=== PATIENT | female | born 1935 ===

== ENCOUNTER 2020-07-13 02:05 | Inpatient (IN) | payer MEDICARE, OTHER ==
[2020-07-13] MEDS ORDERED: cloNIDine 0.1 MG TAB PO PRN (05:41)
[2020-07-13] MEDS ORDERED: Ondansetron PF 4 MG/2 ML Vial IVP PRN (05:42)
[2020-07-13] MEDS ORDERED: Promethazine HCl 12.5 MG in Sodium Chloride 0.9% 50 ML IVPB PRN (05:42)
[2020-07-13] MEDS ORDERED: hydrALAZINE 20 MG/ML VIAL SLOW IVP PRN (05:42)
[2020-07-13] MEDS ORDERED: Labetalol HCl 100 MG/20 ML VIAL SLOW IVP PRN (05:42)
[2020-07-13] MEDS ORDERED: Morphine 2 MG/ML VIAL SLOW IVP PRN (05:42)
[2020-07-13] MEDS ORDERED: Guaifenesin DM 100-10/5 ML UDCUP PO PRN (05:42)
[2020-07-13] MEDS ORDERED: Electrolyte Replacement Protoc 1 EACH EACH FS SCH (05:45)
[2020-07-13] MEDS ORDERED: Sodium Chloride 0.9% 1,000 ML IV SCH (05:45)
[2020-07-13] MEDS ORDERED: Dextrose 50% Abboject 50 ML SYRINGE SLOW IVP PRN (05:47)
[2020-07-13] MEDS ORDERED: Dextrose 5% in Water 1,000 ML IV PRN (05:47)
--- NOTE | 2020-07-13 05:49 | PDOC.HHP ---
Hospitalist HPI - History of Present Illness GI bleed History of Present Illness: Patient is an 85 year old female with PMH CHF, atrial fibrillation, diabetes, pulmonary embolism on eliquis who presents as transfer from [facility] for GI bleed. [facility], staff saw blood in stool 2 days ago, hemoglobin checked and was 6.7, sent to ED for this at [place]. she has chronic lower abdominal pain but has some slightly worse than baseline pain last few days. had transfusion for anemia in previous hospitalization. She is on eliquis for atrial fibrillation, last dose probably 10 at nighttime. she was admitted however had about 8 bloody bowel movements, hemoglobin kept trending d own, patient recieved 4u pRBC and transferred here for further workup and care. Hospitalist ROS - Review of Systems Constitutional: reports: weakness, malaise. denies: fever, chills, sweats, other Eyes: denies: pain, vision change, conjunctivae inflammation, eyelid inflammation, redness, other ENT: denies: ear pain, ear discharge, nose pain, nose discharge, nose congestion, mouth pain, mouth swelling, throat pain, throat swelling, other Respiratory: denies: cough, dry, shortness of breath, hemoptysis, SOB with excertion, pleuritic pain, sputum, wheezing, other Cardiovascular: denies: chest pain, palpitations, orthopnea, paroxysmal noc. dyspnea, edema, light headedness, other Gastrointestinal: reports: abdominal pain, diarrhea, hematochezia. denies: nausea, vomiting, constipation, melena, other Genitourinary: denies: dysuria, frequency, incontinence, hematuria, retention, other Musculoskeletal: denies: neck pain, shoulder pain, arm pain, back pain, hand pain, leg pain, foot pain, other Skin: denies: rash, lesions, gay, bruising, other Neurological: denies: weakness, numbness, incoordination, change in speech, confusion, seizures, other All other systems reviewed; all pertinent +/- noted in HPI/Subj - Medication Medications: reviewed, see transfer documents for list Hospitalist History - Past Medical History Other Medical History: CHF, afib, dm, pe, on eliquis, anemia, arthritis, sick sinus syndrome, venous insufficiency, umbilical hernia - Past Surgical History Past Surgical History: reports: , Tonsillectomy - Family History Family History: reports: no pertinent history - Social History Alcohol: reports: None Drugs: reports: none - Exam General Appearance: NAD, awake alert Eye: PERRL, anicteric sclera ENT: normocephalic atraumatic, no oropharyngeal lesions, moist mucosa Neck: supple, symmetric, no JVD, no thyromegaly, no lymphadenopathy, no carotid bruit Heart: RRR, no murmur, no gallops, no rubs, normal peripheral pulses Respiratory: CTAB, no wheezes, no rales, no ronchi, normal chest expansion, no tachypnea, normal percussion Gastrointestinal: soft, non-tender, non-distended, normal bowel sounds, no palpable masses, no hepatomegaly, no splenomegaly, no bruit Extremities: no cyanosis, no clubbing, no edema Skin: normal turgor, no lesions, no rashes Neurological: cranial nerve grossly intact, normal sensation to touch, no weakness, no focal deficits, no new deficit Musculoskeletal: normal tone, normal strength, no muscle wasting Psychiatric: normal affect, normal behavior, A&O x 3 Hospitalist Results - Labs Additional comment: 25 pages transfer documents reviewed including labs, imaging, notes. see HPI for pertinent positives. Hospitalist H&P A/P - Plan Plan: Patient is an 85 year old female with PMH CHF, atrial fibrillation, diabetes, pulmonary embolism on eliquis who presents as transfer from [facility] for GI bleed. # acute GI bleed # history of PE on eliquis # atrial fibrillation She lives at a [facility], staff saw blood in stool 2 days ago, hemoglobin checked and was 6.7, sent to ED for this at [place]. she has chronic lower abdominal pain but has some slightly worse than baseline pain last few days. had transfusion for anemia in previous hospitalization. She is on eliquis for atrial fibrillation, last dose probably 10/5 at nighttime. she was admitted however had about 8 bloody bowel movements, hemoglobin kept trending down, patient recieved 4u pRBC and transferred here for further workup and care. - admit to telemetry - send labs now, CBC CMP coags, type and screen - had 2 more bloody BMs now may need more blood - consult GI - IVF - clear liquid diet - resume home meds once med rec complete # DM - SSI DVT ppx - SCD GI ppx - protonix
[2020-07-13] MEDS ORDERED: Potassium Chloride 40 MEQ in Premix Bag 1 BAG IVPB SCH (06:15)
[2020-07-13 06:17] LABS: #Basophils 0.1 thou/uL (0.0-0.2); #Eosinphils 0.1 thou/uL (0.0-0.7); #Lymphocytes 0.5 thou/uL (1.20-3.40); #Monocytes 0.7 thou/uL (0.11-0.59); #Neutrophils 5.5 thou/uL (1.40-6.50); %Basophils 1.3 % (0.0-1.0); %Eosinophils 1.8 % (0.0-10.0); %Lymphocytes 7.4 % (21.0-51.0); %Monocytes 10.1 % (0.0-10.0); %Neutrophils 79.4 % (42.0-75.0); Hemoglobin 6.4 g/dL (12.0-16.0); Mean Corpuscular HGB CONC 31.6 g/dL (32.0-36.0); Mean Corpuscular Hemoglobin 28.6 pg (27.0-31.0); Mean Corpuscular Volume 90.3 fL (78.0-98.0); Mean Platelet Volume 9.6 fL (7.4-10.4); Platelet Count 140 thou/uL (130-400); RBC Distribution Width 15.8 % (11.5-14.5); Red Blood Cell (RBC) Count 2.23 mill/uL (4.20-5.40); White Blood Cell (WBC) Count 6.9 thou/uL (4.8-10.8)
[2020-07-13 06:23] LABS: INR-International Normal Ratio 1.4; PTT 42.3 sec (22.9-36.1); Prothrombin Time 17.5 sec (12.0-14.7)
[2020-07-13] MEDS ORDERED: Sodium Chloride 0.9% (PF) 10 ML VIAL FS PRN (06:30)
[2020-07-13 06:37] LABS: ALT (SGPT) Less than 7 U/L (8-55); AST (SGOT) 13 U/L (5-34); Albumin 2.5 g/dL (3.4-4.8); Alkaline Phosphatase 71 U/L (40-110); Bilirubin, Direct 0.2 mg/dL (0.1-0.3); Bilirubin, Total 0.5 mg/dL (0.2-1.2); Magnesium 1.5 mg/dL (1.6-2.6); Protein, Total 4.3 g/dL (6.0-8.3)
[2020-07-13 06:41] LABS: Troponin I 0.025 ng/mL (< 0.028)
[2020-07-13] MEDS ORDERED: Magnesium 2 GM/50 ML 2 GM in Premix Bag 1 BAG IVPB SCH (07:00)
[2020-07-13] MEDS: Pantoprazole 40 MG VIAL IVP SCH ×2 (09:41→21:38)
--- NOTE | 2020-07-13 10:50 | PDOC.EVN ---
Event Note - Event Note Event Note: Patient seen and examined. Had another large bright red bloody bowel movement this AM. Vitals stable and no tachycardia. Hgb still less than 7 even after transfusions at outside hospital. Currently transfusing 2 units PRBC. Will recheck H/H after that. GI consulted.
[2020-07-13 17:07] LABS: #Basophils 0.1 thou/uL (0.0-0.2); #Eosinphils 0.1 thou/uL (0.0-0.7); #Lymphocytes 0.5 thou/uL (1.20-3.40); #Monocytes 0.8 thou/uL (0.11-0.59); #Neutrophils 5.7 thou/uL (1.40-6.50); %Basophils 1.7 % (0.0-1.0); %Eosinophils 1.4 % (0.0-10.0); %Lymphocytes 6.8 % (21.0-51.0); %Monocytes 10.4 % (0.0-10.0); %Neutrophils 79.7 % (42.0-75.0); Hemoglobin 7.5 g/dL (12.0-16.0); Mean Corpuscular HGB CONC 33.1 g/dL (32.0-36.0); Mean Corpuscular Hemoglobin 29.7 pg (27.0-31.0); Mean Corpuscular Volume 89.8 fL (78.0-98.0); Mean Platelet Volume 8.8 fL (7.4-10.4); Platelet Count 139 thou/uL (130-400); RBC Distribution Width 15.3 % (11.5-14.5); Red Blood Cell (RBC) Count 2.52 mill/uL (4.20-5.40); White Blood Cell (WBC) Count 7.2 thou/uL (4.8-10.8)
[2020-07-13] MEDS ORDERED: Ketamine 50 MG/ML (10ML VIAL) ONE (17:46)
[2020-07-13] MEDS ORDERED: Promethazine HCl 25 MG/ML VIAL SLOW IVP PRN (18:24)
[2020-07-13] MEDS ORDERED: Promethazine HCl 25 MG/ML VIAL IM PRN (18:24)
[2020-07-13] MEDS ORDERED: Ondansetron HCl/PF 4 MG/2 ML Vial IVP PRN (18:24)
[2020-07-13] MEDS ORDERED: GoLYTELY 4,000 ml Bottle PO SCH (18:45)
[2020-07-13] MEDS ORDERED: FLU VACC QS2020-21(65YR UP)/PF 240 MCG/0.7 ML SYRINGE IM ONE (21:00)
--- NOTE | 2020-07-14 00:03 | OP ---
DATE OF PROCEDURE: 07/13/2020 PROCEDURE PERFORMED: Esophagogastroduodenoscopy. PREOPERATIVE DIAGNOSES: Gastrointestinal bleed and anemia of acute blood loss. DESCRIPTION OF PROCEDURE: Informed consent was obtained from the patient. She was sedated with total intravenous anesthesia. The bite block was placed, and the endoscope was advanced easily to the second portion of the duodenum, and retroflexion was performed in the stomach. The esophagus was normal. The GE junction was normal. The stomach was normal including retroflexed views. The pylorus and first and second portions of the duodenum were normal. Air was suctioned from the stomach, and the procedure was completed. IMPRESSION: 1. Normal esophagogastroduodenoscopy. 2. Colonoscopy tomorrow. Job ID: [id number]
[2020-07-14 06:33] LABS: Anion Gap 10 mmol/L (10-20); BUN (Urea Nitrogen) 23 mg/dL (9.8-20.1); Calc. Creatinine Clearance 97 mL/min (70-130); Calcium 8.6 mg/dL (7.8-10.44); Carbon Dioxide 33 mmol/L (23-31); Chloride 104 mmol/L (98-107); Estimated GFR-MDRD Greater than 90; Glucose 147 mg/dL (83-110); Magnesium 1.7 mg/dL (1.6-2.6); Potassium 3.9 mmol/L (3.5-5.1); Sodium 143 mmol/L (136-145)
[2020-07-14 06:41] LABS: #Basophils 0.1 thou/uL (0.0-0.2); #Eosinphils 0.1 thou/uL (0.0-0.7); #Lymphocytes 0.6 thou/uL (1.20-3.40); #Neutrophils 6.5 thou/uL (1.40-6.50); %Basophils 0.8 % (0.0-1.0); %Eosinophils 1.5 % (0.0-10.0); %Lymphocytes 6.9 % (21.0-51.0); %Monocytes 12.2 % (0.0-10.0); %Neutrophils 78.6 % (42.0-75.0); Hemoglobin 7.5 g/dL (12.0-16.0); Mean Corpuscular HGB CONC 31.9 g/dL (32.0-36.0); Mean Corpuscular Hemoglobin 29.4 pg (27.0-31.0); Mean Corpuscular Volume 91.9 fL (78.0-98.0); Mean Platelet Volume 8.7 fL (7.4-10.4); Platelet Count 153 thou/uL (130-400); RBC Distribution Width 15.5 % (11.5-14.5); Red Blood Cell (RBC) Count 2.56 mill/uL (4.20-5.40); White Blood Cell (WBC) Count 8.3 thou/uL (4.8-10.8)
[2020-07-14] MEDS: Pantoprazole 40 MG VIAL IVP SCH (08:22)
--- NOTE | 2020-07-14 09:51 | CON ---
DATE OF CONSULTATION: 07/13/2020 CHIEF COMPLAINT: Blood in the stool. HISTORY OF PRESENT ILLNESS: Ms. Munson is an 85-year-old woman who was transferred from a [facility] to an outside hospital, [facility], for red blood in her stool. She first saw red blood in the stool a couple of days ago and she had hemoglobin checked which was 6.7. She was sent to the local ER to evaluate that. She apparently was admitted there and given blood transfusion, apparently 4 units of red blood cells, and then was transferred here to [place] for further management. She has had no abdominal pain with that. No nausea or vomiting. No fever or chills. She has not had a prior GI bleed. She has had upper endoscopy in the past, but does not know the results. She had a colonoscopy years ago which she also reports unknown results, but that was over 10 years ago. She has been on Eliquis due to a history of atrial fibrillation and pulmonary embolism. Her last dose of Eliquis appears to have been a couple of days ago. PAST MEDICAL HISTORY: CHF, atrial fibrillation, diabetes mellitus, pulmonary embolism, anemia, venous insufficiency, umbilical hernia. She reports heart murmur due to rheumatic fever as a child. PAST SURGICAL HISTORY: , tonsillectomy. FAMILY HISTORY: Negative for GI malignancy. SOCIAL HISTORY: No alcohol, tobacco, or drugs. ALLERGIES: PENICILLIN, MEPERIDINE, CLONIDINE, ALBUTEROL. REVIEW OF SYSTEMS: Negative x10 systems reviewed except as stated in History of Present Illness. PHYSICAL EXAMINATION: VITAL SIGNS: Temperature is 98.3, pulse is 86, blood pressure 116/53. GENERAL: She is in no acute distress. She is awake and alert. She is quite pale. HEENT: Her oropharynx is clear without lesions. NECK: No cervical or supraclavicular lymphadenopathy. LUNGS: Clear to auscultation bilaterally. HEART: Regular rate and rhythm without murmur. ABDOMEN: Soft. Mild diffuse tenderness without guarding. Bowel sounds are present. EXTREMITIES: 2+ lower extremity edema. RECTAL: Reveals dark red blood in the rectal vault. NEUROLOGIC: Cranial nerves are grossly intact. LABORATORY DATA: White blood cell count 6.9; hemoglobin this morning at 6 was 6.4, repeat at 1300 today showed a hematocrit of 20.6, which is unchanged from this morning. She is receiving blood transfusion still. She has 2 units written to transfuse at this facility. INR 1.4. Bilirubin 0.5, AST 13, ALT 7, alkaline phosphatase 71, albumin 2.5. IMPRESSION: Acute gastrointestinal bleed, having been on Eliquis. Her last dose she believes was 2 days ago, but could have been as recent as yesterday morning. She continues to pass dark red blood and her hemoglobin remained 6.4 apparently after 4 units transfusion. She has received 2 more units here at the hospital. We will need to rule out more rapid upper gastrointestinal bleed and we will perform upper endoscopy today. If this is negative, then we can follow through with a colonoscopy tomorrow versus bleeding scan. I would favor that this is more likely a diverticular bleed. RECOMMENDATIONS: 1. Transfusion. 2. EGD today. 3. Proton pump inhibitor IV. 4. If endoscopy is negative, then follow through with a bleeding scan this evening and likely bowel prep for colonoscopy tomorrow. Job ID: [id number]
[2020-07-14] MEDS ORDERED: Magnesium 2 GM/50 ML 2 GM in Premix Bag 1 BAG IVPB SCH (10:45)
--- NOTE | 2020-07-14 15:57 | PDOC.HOSPP ---
- Subjective Encounter Date: 07/14/20 Encounter Time: 10:15 Subjective: Patient up in bed complains of some mild lower abdominal cramping. - Objective Vital Signs & Weight: Vital Signs (12 hours) Temp Pulse Resp BP Pulse Ox 07/14/20 13:58 97.7 F 88 18 128/80 100 07/14/20 08:00 97.9 F 92 18 131/75 100 Weight Admit Weight 203 lb 12.8 oz Weight 203 lb 12.8 oz I&O: 07/13/20 07/14/20 07/15/20 06:59 06:59 06:59 Intake Total 2870 Balance 2870 Result Diagrams: 07/14/20 05:55 07/14/20 05:55 Additional Labs: Accuchecks 07/14/20 07/14/20 07/13/20 11:01 05:55 20:48 POC Glucose 148 H 125 H 155 H 07/13/20 17:19 POC Glucose 147 H Hospitalist ROS - Review of Systems Cardiovascular: denies: chest pain, palpitations, orthopnea, paroxysmal noc. dyspnea, edema, light headedness, other Gastrointestinal: reports: abdominal pain. denies: nausea, vomiting, diarrhea, constipation, melena, hematochezia, other Genitourinary: denies: dysuria, frequency, incontinence, hematuria, retention, other - Medication Medications: Active Medications Generic Name Dose Route Start Last Admin Trade Name Freq PRN Reason Stop Dose Admin Pantoprazole Sodium 40 mg 07/13/20 09:00 07/14/20 08:22 Pantoprazole 40 Mg Vial IVP 40 mg Q12HR RANDI Administration - Exam Neck: negative: supple, symmetric, no JVD, no thyromegaly, no lymphadenopathy, no carotid bruit, JVD Heart: negative: RRR, no murmur, no gallops, no rubs, normal peripheral pulses, irregular, diminshed peripheral pulses, murmur present, II/IV, III/IV Respiratory: negative: CTAB, no wheezes, no rales, no ronchi, normal chest expansion, no tachypnea, normal percussion, rales, rhonchi, tachypneic, wheezes Gastrointestinal: soft, normal bowel sounds Gastrointestinal - other findings: Mild pain upon palpation to lower abdominal area Hosp A/P (1) Bright red blood per rectum Code(s): K62.5 - HEMORRHAGE OF ANUS AND RECTUM Status: Acute (2) Pulmonary embolism Code(s): I26.99 - OTHER PULMONARY EMBOLISM WITHOUT ACUTE COR PULMONALE Status: Chronic Qualifiers: Chronicity: chronic (3) Atrial fibrillation Code(s): I48.91 - UNSPECIFIED ATRIAL FIBRILLATION Status: Chronic Qualifiers: Atrial fibrillation type: unspecified chronic Qualified Code(s): I48.20 - Chronic atrial fibrillation, unspecified; I48.2 - Chronic atrial fibrillation (4) Diabetes Code(s): E11.9 - TYPE 2 DIABETES MELLITUS WITHOUT COMPLICATIONS Status: Acute - Plan We will continue to monitor H&H. EGD normal will go for colonoscopy in a.m. Patient's not had any more bright blood per rectum. Will hold Eliquis. She states that her PE DVT was a few years ago.
[2020-07-14] MEDS ORDERED: GoLYTELY 4,000 ml Bottle PO SCH (19:00)
--- NOTE | 2020-07-14 19:47 | PRG ---
DATE OF SERVICE: 07/14/2020 REASON FOR CONSULTATION: Hematochezia. SUBJECTIVE: The patient experienced significant difficulty overnight in drinking the GoLYTELY prep in preparation for the colonoscopy today. As of 8 o'clock this morning, she was only able to drink approximately 1/2 to 2/3 of the GoLYTELY prep with no clearing of her stools at that time. Over the course of the day today, the patient was ultimately able to drink all 4000 mL of the GoLYTELY, but at the end of it, continued to have stools that were not clear. As such, the patient was deferred for possible colonoscopy tomorrow. At the time of the interview with the patient, she was tearful about not being able to complete the GoLYTELY prep in time today and had significant apprehension about being able to continue the GoLYTELY prep tonight in preparation for colonoscopy tomorrow. However, during the course of drinking the GoLYTELY prep both last night and today, she has had no further episodes of hematochezia. Currently, she denies any nausea, vomiting, fevers, chills, abdominal pain, hematemesis, melena, or hematochezia. OBJECTIVE: VITAL SIGNS: Temperature 97.7, pulse 88, blood pressure 128/80, respiratory rate 18, and saturating 100% on 2 L nasal cannula. GENERAL: The patient was lying in bed, in no acute distress. Alert and oriented x3. CARDIOVASCULAR: Regular rate and rhythm. RESPIRATORY: Clear to auscultation bilaterally. ABDOMEN: Normoactive bowel sounds. Soft, nontender, and nondistended. EXTREMITIES: 1+/2+ bilateral lower extremity edema. LABORATORY DATA: CBC with a white blood cell count of 8.3, hemoglobin 7.5, hematocrit 23.6, and platelets 153. Chemistry with sodium of 143, potassium 3.9, chloride 104, CO2 of 33, BUN 23, creatinine 0.61, glucose 147. IMAGING DATA: No current GI imaging is available for review. ASSESSMENT AND PLAN: The patient is an 85-year-old female with past medical history of congestive heart failure, atrial fibrillation, on anticoagulation, diabetes, pulmonary embolism, anemia, venous insufficiency, insufficiency, and umbilical hernia, presenting with hematochezia and significant anemia secondary to her acute blood loss. Hematochezia: The patient initially was seen at [facility] for hematochezia, for which the patient had initial labs showing a significant anemia, for which she was transferred to [facility] for further evaluation. Per chart review, the patient apparently had 4 units of packed red blood cells and ultimately transferred here. Since being admitted to this hospital, she has not had any further episodes of hematochezia. She did undergo upper endoscopy yesterday with relatively normal findings. She was slated to undergo colonoscopy on July 14, 2020, but was unable to adequately tolerate the GoLYTELY prep with inadequate preparation today. RECOMMENDATIONS: 1. We will place the patient on a clear liquid diet for the remainder of today and repeat the GoLYTELY prep tonight. The patient may not need the entire GoLYTELY prep if her stools are running clear. 2. Would make the patient n.p.o. at midnight in preparation for colonoscopy tomorrow. 3. Would plan for colonoscopy in the morning for further evaluation of her hematochezia. 4. We will continue to trend her H and H and transfuse as necessary to maintain an H and H of 7/21. 5. Continue to monitor clinically for signs of active GI bleeding. We will continue to follow. Please call with any questions. Job ID: [id number]
[2020-07-15] MEDS: Pantoprazole 40 MG VIAL IVP SCH ×3 (00:27→22:18)
[2020-07-15 04:48] LABS: Anion Gap 11 mmol/L (10-20); BUN (Urea Nitrogen) 16 mg/dL (9.8-20.1); Calc. Creatinine Clearance 98 mL/min (70-130); Calcium 8.3 mg/dL (7.8-10.44); Carbon Dioxide 34 mmol/L (23-31); Chloride 102 mmol/L (98-107); Estimated GFR-MDRD Greater than 90; Glucose 144 mg/dL (83-110); Magnesium 1.6 mg/dL (1.6-2.6); Potassium 3.1 mmol/L (3.5-5.1); Sodium 144 mmol/L (136-145)
[2020-07-15 05:11] LABS: Band 3 % (5-11); Eosinophils 5 % (0-10); Hemoglobin 7.1 g/dL (12.0-16.0); Lymphocytes 7 % (21-51); MDiff Complete? YES; Mean Corpuscular HGB CONC 33.4 g/dL (32.0-36.0); Mean Corpuscular Hemoglobin 30.7 pg (27.0-31.0); Mean Corpuscular Volume 91.9 fL (78.0-98.0); Monocytes 15 % (0-10); Neutrophil 70 % (42-75); Platelet Count 170 thou/uL (130-400); RBC Distribution Width 15.8 % (11.5-14.5); Red Blood Cell (RBC) Count 2.32 mill/uL (4.20-5.40); White Blood Cell (WBC) Count 6.5 thou/uL (4.8-10.8)
[2020-07-15] MEDS ORDERED: Magnesium 2 GM/50 ML 2 GM in Premix Bag 1 BAG IVPB SCH (06:45)
[2020-07-15] MEDS: Potassium Chloride 20 MEQ in Premix Bag 1 BAG IVPB SCH ×2 (09:46→15:23)
[2020-07-15] MEDS ORDERED: Lidocaine 1% PF 5 ML VIAL ONE (10:16)
[2020-07-15] MEDS ORDERED: PROPOFOL 200 MG/20 ML VIAL ONE (10:16)
[2020-07-15] MEDS ORDERED: Ketamine 50 MG/ML (10ML VIAL) ONE (11:03)
[2020-07-15] MEDS ORDERED: Potassium Chloride 20 MEQ in Premix Bag 1 BAG IVPB SCH (15:15)
[2020-07-15 16:18] LABS: #Eosinphils 0.2 thou/uL (0.0-0.7); #Lymphocytes 0.5 thou/uL (1.20-3.40); #Monocytes 0.7 thou/uL (0.11-0.59); #Neutrophils 4.5 thou/uL (1.40-6.50); %Basophils 0.6 % (0.0-1.0); %Eosinophils 2.8 % (0.0-10.0); %Lymphocytes 8.1 % (21.0-51.0); %Monocytes 11.3 % (0.0-10.0); %Neutrophils 77.3 % (42.0-75.0); Hemoglobin 7.3 g/dL (12.0-16.0); Mean Corpuscular HGB CONC 31.8 g/dL (32.0-36.0); Mean Corpuscular Hemoglobin 29.7 pg (27.0-31.0); Mean Corpuscular Volume 93.4 fL (78.0-98.0); Mean Platelet Volume 8.5 fL (7.4-10.4); Platelet Count 169 thou/uL (130-400); RBC Distribution Width 16.2 % (11.5-14.5); Red Blood Cell (RBC) Count 2.46 mill/uL (4.20-5.40); White Blood Cell (WBC) Count 5.8 thou/uL (4.8-10.8)
--- NOTE | 2020-07-15 17:10 | CT ---
CT CHEST AND ABDOMEN AND PELVIS PERFORMED WITH INTRAVENOUS CONTRAST ENHANCEMENT: 07/15/20 HISTORY: Large mass found in ascending colon, metastatic workup. There are small bilateral pleural effusions with bibasilar atelectatic lung change. In addition, ther e is ground glass opacities in right upper and lower lung zones. No definitive left upper or lower lo be ground glass change. There is no significant mediastinal or hilar adenopathy. No significant axillary lymphadenopathy. Ple ural based calcification is seen in the left lung. CT OF ABDOMEN PERFORMED WITH CONTRAST ENHANCEMENT: The liver, spleen, pancreas and gallbladder regions all appear unremarkable. Right and left adrenal glands are normal. Cortical thinning of both kidneys. No mass or obstruction. Retroaortic left renal vein is noted. No significant periaortic or mesenteric adenopathy is appreciat ed. Difficult to definitely visualize the ascending colon mass. The colon is not well distended and t here is what appears to be some wall thickening in this region. CT OF PELVIS PERFORMED WITH CONTRAST ENHANCEMENT: There is suggestion of wall thickening to the rectosigmoid region. Some minimal presacral fat strandi ng is seen. No pelvic lymphadenopathy. There is a left lateral hernia present involving the abdominal wall. Herniation of bowel without obstruction. Review of osseous structures shows severe bony demineralization. No definitive focal lytic bone bryant e. Some of the areas of lucency are felt just to be on the basis of osteoporosis. IMPRESSION: 1. Some ground glass opacities in the right upper and lower lung zones. This could possibly be o n the basis of aspiration, possibly of a COVID pneumonia is not excluded. 2. Small bilateral pleural effusions with bibasilar atelectatic lung change. 3. No evidence for any liver metastatic disease. There is sigmoid diverticulosis distal to the s igmoid diverticular change. There appears to be some wall thickening to the colon. Difficult to asses s due to the underdistention. Clinical correlation is recommended as to any findings that would sugge st a colitis or any mass noted in this region. There is some minimal presacral fat stranding seen. 4. Left lateral wall abdominal hernia. POS: [facility] [place]
--- NOTE | 2020-07-15 18:52 | PDOC.HOSPP ---
- Subjective Encounter Date: 07/15/20 Encounter Time: 10:15 Subjective: Patient up in bed denies any complaints. - Objective Vital Signs & Weight: Vital Signs (12 hours) Temp Pulse Resp BP Pulse Ox 07/15/20 15:20 97.8 F 94 17 133/54 L 100 07/15/20 11:30 97.6 F 61 17 117/51 L 100 07/15/20 07:45 97.9 F 70 17 153/70 H 100 Weight Admit Weight 203 lb 12.8 oz Weight 203 lb 12.8 oz I&O: 07/14/20 07/15/20 07/16/20 06:59 06:59 06:59 Intake Total 2870 4480 1400 Balance 2870 4480 1400 Result Diagrams: 07/15/20 15:52 07/15/20 04:15 Additional Labs: Accuchecks 07/15/20 07/15/20 07/15/20 17:02 10:29 05:10 POC Glucose 195 H 152 H 129 H 07/14/20 20:52 POC Glucose 225 H Hospitalist ROS - Review of Systems Cardiovascular: denies: chest pain, palpitations, orthopnea, paroxysmal noc. dyspnea, edema, light headedness, other Gastrointestinal: denies: nausea, vomiting, abdominal pain, diarrhea, consti pation, melena, hematochezia, other Genitourinary: denies: dysuria, frequency, incontinence, hematuria, retention, other - Medication Medications: Active Medications Generic Name Dose Route Start Last Admin Trade Name Freq PRN Reason Stop Dose Admin Pantoprazole Sodium 40 mg 07/13/20 09:00 07/15/20 09:46 Pantoprazole 40 Mg Vial IVP 40 mg Q12HR RANDI Administration - Exam Neck: negative: supple, symmetric, no JVD, no thyromegaly, no lymphadenopathy, no carotid bruit, JVD Heart: negative: RRR, no murmur, no gallops, no rubs, normal peripheral pulses, irregular, diminshed peripheral pulses, murmur present, II/IV, III/IV Respiratory: negative: CTAB, no wheezes, no rales, no ronchi, normal chest expansion, no tachypnea, normal percussion, rales, rhonchi, tachypneic, wheezes Gastrointestinal: negative: soft, non-tender, non-distended, normal bowel sounds, no palpable masses, no hepatomegaly, no splenomegaly, no bruit, no guarding, no rigidity, tender to palpation, distended, diminished bowl sounds, voluntary guarding Hosp A/P (1) Bright red blood per rectum Code(s): K62.5 - HEMORRHAGE OF ANUS AND RECTUM Status: Acute (2) Pulmonary embolism Code(s): I26.99 - OTHER PULMONARY EMBOLISM WITHOUT ACUTE COR PULMONALE Status: Chronic Qualifiers: Chronicity: chronic (3) Atrial fibrillation Code(s): I48.91 - UNSPECIFIED ATRIAL FIBRILLATION Status: Chronic Qualifiers: Atrial fibrillation type: unspecified chronic Qualified Code(s): I48.20 - Chronic atrial fibrillation, unspecified; I48.2 - Chronic atrial fibrillation (4) Diabetes Code(s): E11.9 - TYPE 2 DIABETES MELLITUS WITHOUT COMPLICATIONS Status: Acute - Plan We will continue to monitor H&H. EGD normal will go for colonoscopy in a.m. Patient's not had any more bright blood per rectum. Will hold Eliquis. She states that her PE DVT was a few years ago. 07/15 continue to hold Eliquis. H&H low stable. Will start patient on clear liquid diet. Covid test pending. Patient underwent a CT chest abdomen pelvis to rule out any metastatic lesions. Patient's official colonoscopy report is not up however the nurse was told possible mass.
--- NOTE | 2020-07-15 19:09 | OP ---
DATE OF PROCEDURE: 07/15/2020 PROCEDURES PERFORMED: 1. Colonoscopy with biopsy. 2. Submucosal injection. 3. Polypectomy. 4. Control of hemorrhage. INDICATIONS FOR PROCEDURE: Hematochezia, anemia. DESCRIPTION OF PROCEDURE: After the risks and benefits of the procedure were explained to the patient including risks of bleeding, infection, perforation, reactions to anesthesia, aspiration, and/or pain, informed consent was obtained. The patient was then taken to the endoscopy suite where she was maneuvered into the left lateral decubitus position followed by introduction of deep sedation via propofol and anesthesia support. Once adequate sedation was achieved, a digital rectal examination was performed followed by introduction of the standard colonoscope, which was then advanced to the terminal ileum with moderate difficulty due to tortuosity of the colon and significant looping of the scope. The quality of the prep was fair to good with adequate visualization of the colonic mucosa achieved. The patient tolerated the procedure well with no immediate perioperative complications. Upon conclusion of the procedure, all equipment was then removed from the patient and she was transferred to PACU in satisfactory condition. FINDINGS: Digital rectal exam: Medium to large external hemorrhoids as well as perianal skin tags were seen on digital rectal examination. No masses palpated. Colon findings: Normal-appearing mucosa was seen within the terminal ileum as well as at the ileocecal valve and appendiceal orifice. A 5- to 6-mm erythematous polyp was seen in the cecum and completely removed with snare cautery polypectomy. It was retrieved and placed in a specimen jar for further evaluation. However, in the mid-ascending colon, there was a 3- to 4-cm sessile mass along one wall of the colon and involving multiple folds, but only occupying approximately 10% to 20% of the colonic lumen. The mass itself did show some increased friability, some mild oozing of blood, and some small ulcerations, but no evidence of significant active or recent bleeding. Given the size of this polyp, multiple biopsies were taken and placed in a specimen jar for further evaluation. Submucosal injection with spot ink ( ink) was placed both proximal and distal to the mass itself for further reference. Normal-appearing mucosa was then seen at the hepatic flexure, transverse colon, and proximal descending colon. Multiple small and large diverticula were seen in the distal descending and sigmoid colons. Careful examination of each of these diverticula did not reveal any evidence of erythema, purulence, or active/recent bleeding. A 1.5- to 2-cm sessile polyp was also seen in the sigmoid colon and removed in a piecemeal fashion with snare cautery polypectomy with a larger mucosal defect. Hemoclip x2 were then employed with good approximation of the mucosal defect and good hemostasis achieved. Otherwise, normal-appearing mucosa was seen in the rectum with small internal hemorrhoids seen on rectal retroflexion. IMPRESSION: 1. A 5- to 6-mm cecal polyp status post snare cautery polypectomy. 2. A 3- to 4-cm sessile mass seen in the mid-ascending colon status post biopsy and tattoo placement. 3. Moderate left-sided diverticulosis without evidence of recent bleeding. 4. A 1.5- to 2-cm sessile polyp in the sigmoid colon, status post piecemeal resection with snare cautery polypectomy and hemoclip placement x2. 5. Small internal and moderate-sized external hemorrhoids that were nonbleeding. RECOMMENDATIONS: 1. Would continue to trend her hemoglobin and hematocrit and transfuse as necessary to maintain the hemoglobin and hematocrit of 7/21. 2. Continue to monitor clinically for signs of active GI bleeding. 3. Would follow up on the biopsy and polypectomy results to help guide further care. We would recommend a repeat colonoscopy in 6 to 12 months given the piecemeal resection of the sigmoid colon polyp. 4. Would consult General Surgery Service for evaluation of the patient and possible surgical resection of the ascending colon polyp. However, given the nonobstructive nature of this lesion, this could be potentially performed as an outpatient, although it is one the more likely source of upper GI bleed. 5. Would continue to avoid any anticoagulation on the patient for the next 48 to 72 hours, then restart if clinically appropriate. 6. Would start the patient on a full liquid diet and advance as tolerated. 7. Would obtain a CT scan of the chest, abdomen, and pelvis for evaluation of possible metastatic disease given the size of the ascending colon polyp and possibility of malignancy. We will continue to follow. Please call with any questions. Job ID: [id number]
[2020-07-16 06:47] LABS: Anion Gap 12 mmol/L (10-20); BUN (Urea Nitrogen) 9 mg/dL (9.8-20.1); Calc. Creatinine Clearance 98 mL/min (70-130); Calcium 8.4 mg/dL (7.8-10.44); Carbon Dioxide 30 mmol/L (23-31); Chloride 101 mmol/L (98-107); Estimated GFR-MDRD Greater than 90; Glucose 157 mg/dL (83-110); Magnesium 1.6 mg/dL (1.6-2.6); Potassium 3.1 mmol/L (3.5-5.1); Sodium 140 mmol/L (136-145)
[2020-07-16 07:03] LABS: #Eosinphils 0.2 thou/uL (0.0-0.7); #Lymphocytes 0.4 thou/uL (1.20-3.40); #Monocytes 0.8 thou/uL (0.11-0.59); #Neutrophils 7.7 thou/uL (1.40-6.50); %Eosinophils 1.8 % (0.0-10.0); %Lymphocytes 4.6 % (21.0-51.0); %Neutrophils 84.6 % (42.0-75.0); Hemoglobin 6.9 g/dL (12.0-16.0); Mean Corpuscular HGB CONC 32.6 g/dL (32.0-36.0); Mean Corpuscular Hemoglobin 30.5 pg (27.0-31.0); Mean Corpuscular Volume 93.6 fL (78.0-98.0); Mean Platelet Volume 8.7 fL (7.4-10.4); Platelet Count 171 thou/uL (130-400); RBC Distribution Width 16.6 % (11.5-14.5); Red Blood Cell (RBC) Count 2.25 mill/uL (4.20-5.40); White Blood Cell (WBC) Count 9.1 thou/uL (4.8-10.8)
[2020-07-16] MEDS: Pantoprazole 40 MG VIAL IVP SCH ×2 (08:43→21:21)
[2020-07-16] MEDS ORDERED: Magnesium 2 GM/50 ML 2 GM in Premix Bag 1 BAG IVPB SCH (09:30)
[2020-07-16] MEDS ORDERED: Potassium Chloride 20 MEQ TAB PO SCH (09:45)
[2020-07-16] MEDS: HumaLOG 300 UNITS/3 ML VIAL SC PRN ×2 (11:02→17:35)
--- NOTE | 2020-07-16 12:12 | PRG ---
DATE OF SERVICE: 07/16/2020 REASON FOR CONSULTATION: Hematochezia. SUBJECTIVE: The patient underwent colonoscopy yesterday with multiple polyps seen throughout the colon with two polyps removed, one from the cecum and the other from the sigmoid colon. However, a large flat polypoid mass was seen in the mid ascending colon with mild friability associated with it, but did not exhibit a fungating type appearance for possible colon cancer, but may rather be a large colonic polyp. In the postoperative period, the patient has not had any bowel movements, bloody or otherwise. She states that she is doing well today with no acute events or problems. She has been able to tolerate a full liquid diet, but would like something more substantial at this time. Currently, she denies any nausea, vomiting, fevers, chills, hematemesis, melena, or hematochezia. OBJECTIVE: VITAL SIGNS: Temperature 97.8, pulse 67, blood pressure 119/59, respiratory rate 17, saturating 99% on 2 L nasal cannula. GENERAL: The patient was lying in bed, in no acute distress. Alert and oriented x3. CARDIOVASCULAR: Regular rate and rhythm. RESPIRATORY: Clear to auscultation bilaterally. ABDOMEN: Normoactive bowel sounds. Soft, nontender, nondistended. EXTREMITIES: 1+ bilateral lower extremity edema. LABORATORY DATA: CBC with a white blood cell count of 9.1, hemoglobin 6.9, hematocrit 21, platelets 171. Chemistry with a sodium of 140, potassium 3.1, chloride 101, CO2 of 30, BUN 12, creatinine 0.6, glucose 157. IMAGING DATA: The patient underwent colonoscopy on July 15, 2020, with the finding of a 5 to 6 mm polyp in the cecum that was removed with snare cautery polypectomy. An additional 1.5 to 2 cm polyp was seen in the sigmoid colon and removed with snare cautery polypectomy with placement of two hemoclips to prevent post-polypectomy bleeding. However, a large 3 to 4 cm polypoid mass was seen in the mid descending colon that was unamenable to endoscopic resection. Subsequently, it was biopsied for further evaluation with tattoo placement on the proximal and distal end of the lesion for further reference. Moderate left-sided diverticulosis was also seen, but no evidence of active or recent bleeding. Internal and external hemorrhoids were also seen, but again no evidence of active or recent bleeding. ASSESSMENT AND PLAN: The patient is an 85-year-old female with past medical history of congestive heart failure; atrial fibrillation, on anticoagulation; diabetes; pulmonary embolism; anemia; venous insufficiency; and umbilical hernia, initially presenting with hematochezia while on anticoagulation and significant anemia secondary to this blood loss, most likely due to a colonic polypoid lesion. 1. Hematochezia: Patient initially presented to [facility] for hematochezia with initial labs showing significant anemia and per chart review, the patient was resuscitated with 4 units of packed red blood cells and ultimately transferred here. During this hospitalization, she did not have any further episodes of hematochezia, but did have a slowly downtrending H and H requiring blood transfusion on July 13, 2020, of 1 unit of PRBCs. She underwent upper endoscopy with relatively normal findings; however, she did undergo colonoscopy on July 15, 2020, with the finding of a large polypoid lesion in the mid ascending colon which could have contributed to her hematochezia if the patient was on anticoagulation (the lesion did not exhibit significant active bleeding at the time of colonoscopy). At this time, the most likely reason for her hematochezia would be the polypoid lesion within the colon with a lower likelihood of rebleeding; however, if the patient needs to be placed back on chronic anticoagulation, more urgent evaluation by General Surgery Service may be needed prior to being placed back on anticoagulation. RECOMMENDATIONS: 1. Advance diet as tolerated. 2. Would continue to trend her H and H and transfuse as necessary to maintain an H and H of 7/21. 3. Continue to monitor clinically for signs of active GI bleeding. 4. We will confer with General Surgery Service about seeing the patient in the inpatient versus outpatient setting. 5. We will continue to hold any anticoagulation on this patient for at least the next 48 hours in light of polypectomy performed the other day. With the CT scan showing no evidence of metastatic disease, no further evidence of GI bleeding, we will sign off at this time with plans for the patient to follow up with General Surgery either as an inpatient or outpatient. (There is no surgical emergency given the nonobstructive nature of this lesion, although it may need more expedited workup in light of her anticoagulation and recent bleeding). Please call with any additional questions. Job ID: [id number]
--- NOTE | 2020-07-16 16:36 | PDOC.HOSPP ---
- Subjective Encounter Date: 07/16/20 Encounter Time: 16:34 Subjective: Ms. Munson was seen today in follow-up of GI Bleed, and large polyp in the ascending colon. She notes a little abdominal soreness, and she is hungry, otherwise ok. - Objective Vital Signs & Weight: Vital Signs (12 hours) Temp Pulse Resp BP Pulse Ox 07/16/20 11:10 98.5 F 77 17 140/57 L 99 07/16/20 07:45 97.8 F 67 17 119/59 L 99 Weight Admit Weight 203 lb 12.8 oz Weight 203 lb 12.8 oz I&O: 07/15/20 07/16/20 07/17/20 06:59 06:59 06:59 Intake Total 4480 1760 Output Total 400 Balance 4480 1360 Result Diagrams: 07/16/20 06:14 07/16/20 06:14 Additional Labs: Accuchecks 07/16/20 07/16/20 07/16/20 16:21 10:48 06:14 POC Glucose 183 H 186 H 154 H 07/15/20 17:02 POC Glucose 195 H Hospitalist ROS - Medication Medications: Active Medications Generic Name Dose Route Start Last Admin Trade Name Freq PRN Reason Stop Dose Admin Insulin Human Lispro 0 units 07/13/20 05:47 07/16/20 11:02 Humalog 300 Units/3 Ml Vial SC 2 unit .MILD SLIDING SCALE PRN Administration Mild Correctional Scale Pantoprazole Sodium 40 mg 07/13/20 09:00 07/16/20 08:43 Pantoprazole 40 Mg Vial IVP 40 mg Q12HR RANDI Administration - Exam Eye: PERRL, anicteric sclera Heart: RRR, no gallops, no rubs, normal peripheral pulses, murmur present, II/IV Respiratory: CTAB, no wheezes, no rales, no ronchi, normal chest expansion, no tachypnea, normal percussion Gastrointestinal: soft, non-tender, non-distended, normal bowel sounds, no palpable masses, no hepatomegaly, no splenomegaly Extremities: no cyanosis, 1+ LE edema Hosp A/P (1) GI bleed Code(s): K92.2 - GASTROINTESTINAL HEMORRHAGE, UNSPECIFIED Status: Acute (2) Acute blood loss anemia Code(s): D62 - ACUTE POSTHEMORRHAGIC ANEMIA Status: Acute (3) Diabetes mellitus type 2 in obese Code(s): E11.69 - TYPE 2 DIABETES MELLITUS WITH OTHER SPECIFIED COMPLICATION; E66.9 - OBESITY, UNSPECIFIED Status: Chronic (4) Atrial fibrillation Code(s): I48.91 - UNSPECIFIED ATRIAL FIBRILLATION Status: Chronic Qualifiers: Atrial fibrillation type: unspecified chronic Qualified Code(s): I48.20 - Chronic atrial fibrillation, unspecified; I48.2 - Chronic atrial fibrillation (5) Colon polyp Code(s): K63.5 - POLYP OF COLON Status: Acute - Plan * Acute blood loss anemia due to large colon polyp- her H&H is a bit lower today- at 6.9- will re-check in the AM, if it is in the same range or lower will transfuse * Discussed in detail the need for urgent surgery with the patient. I offered to have a Surgeon to see her tomorrow regarding this. She is reluctant to have surgery here. She would prefer to be closer to her her family in the [facility]. She is not sure she " would make it out of surgery". She tells me she has heart problems and was told she needs a heart valve fixed. I have asked her which hospital she would like to go to in the [facility], but she does not know. She says she will be in contact with family * DM- blood glucose is stable- will advance her diet to full liquids * AFIB- her heart rate is stable ( Home medications are not in the chart) will need to reconcile and re-start home medications as indicated * General deconditioning and bed ridden status, and heart murmur- if she has surgery, she will need a Customer Services Coordinator evaluation prior to surgery
[2020-07-17] MEDS: Acetaminophen 325 MG TAB PO PRN ×2 (01:05→11:32)
[2020-07-17 04:28] LABS: #Eosinphils 0.3 thou/uL (0.0-0.7); #Lymphocytes 0.5 thou/uL (1.20-3.40); #Monocytes 0.9 thou/uL (0.11-0.59); #Neutrophils 5.6 thou/uL (1.40-6.50); %Basophils 0.3 % (0.0-1.0); %Lymphocytes 7.2 % (21.0-51.0); %Monocytes 11.9 % (0.0-10.0); %Neutrophils 76.6 % (42.0-75.0); Hemoglobin 6.6 g/dL (12.0-16.0); Mean Corpuscular HGB CONC 32.2 g/dL (32.0-36.0); Mean Corpuscular Volume 93.1 fL (78.0-98.0); Mean Platelet Volume 8.2 fL (7.4-10.4); Platelet Count 183 thou/uL (130-400); RBC Distribution Width 16.1 % (11.5-14.5); Red Blood Cell (RBC) Count 2.19 mill/uL (4.20-5.40); White Blood Cell (WBC) Count 7.4 thou/uL (4.8-10.8)
[2020-07-17 09:19] LABS: Anion Gap 11 mmol/L (10-20); BUN (Urea Nitrogen) 8 mg/dL (9.8-20.1); Calc. Creatinine Clearance 89 mL/min (70-130); Carbon Dioxide 32 mmol/L (23-31); Chloride 96 mmol/L (98-107); Estimated GFR-MDRD 85; Glucose 182 mg/dL (83-110); Sodium 135 mmol/L (136-145)
[2020-07-17] MEDS: Pantoprazole 40 MG VIAL IVP SCH ×2 (09:25→21:22)
[2020-07-17] MEDS: HumaLOG 300 UNITS/3 ML VIAL SC PRN (11:31)
--- NOTE | 2020-07-17 14:01 | PDOC.HOSPP ---
- Subjective Encounter Date: 07/17/20 Encounter Time: 14:00 Subjective: Ms. Munson was seen today in follow-up of GI bleed and colon mass. She does not have any new complaints. - Objective Vital Signs & Weight: Vital Signs (12 hours) Temp Pulse Resp BP Pulse Ox 07/17/20 11:00 97.8 F 83 20 111/56 L 96 07/17/20 09:25 100 07/17/20 07:53 98.7 F 68 18 116/75 100 07/17/20 04:00 97.9 F 59 L 100/55 L 99 Weight Admit Weight 203 lb 12.8 oz Weight 203 lb 12.8 oz I&O: 07/16/20 07/17/20 07/18/20 06:59 06:59 06:59 Intake Total 1760 920 0 Output Total 400 540 Balance 1360 380 0 Result Diagrams: 07/17/20 04:19 07/17/20 08:49 Additional Labs: Accuchecks 07/17/20 07/17/20 07/16/20 10:30 05:15 20:23 POC Glucose 224 H 137 H 214 H 07/16/20 16:21 POC Glucose 183 H Hospitalist ROS - Medication Medications: Active Medications Generic Name Dose Route Start Last Admin Trade Name Freq PRN Reason Stop Dose Admin Acetaminophen 650 mg 07/13/20 05:41 07/17/20 11:32 Acetaminophen 325 Mg Tab PO 650 mg Q4H PRN Administration Headache/Fever/Mild Pain (1-3) Insulin Human Lispro 0 units 07/13/20 05:47 07/17/20 11:31 Humalog 300 Units/3 Ml Vial SC 3 unit .MILD SLIDING SCALE PRN Administration Mild Correctional Scale Pantoprazole Sodium 40 mg 07/13/20 09:00 07/17/20 09:25 Pantoprazole 40 Mg Vial IVP 40 mg Q12HR RANDI Administration - Exam Eye: PERRL Heart: RRR, no gallops, murmur present, II/IV Respiratory: CTAB, no wheezes, no rales, no ronchi, normal chest expansion, no tachypnea, normal percussion Gastrointestinal: soft, non-distended, normal bowel sounds, no palpable masses, no hepatomegaly, no splenomegaly, tender to palpation Extremities: no cyanosis, 2+ LE edema (massive edema in both lower extremities) Hosp A/P (1) GI bleed Code(s): K92.2 - GASTROINTESTINAL HEMORRHAGE, UNSPECIFIED Status: Acute (2) Acute blood loss anemia Code(s): D62 - ACUTE POSTHEMORRHAGIC ANEMIA Status: Acute (3) Diabetes mellitus type 2 in obese Code(s): E11.69 - TYPE 2 DIABETES MELLITUS WITH OTHER SPECIFIED COMPLICATION; E66.9 - OBESITY, UNSPECIFIED Status: Chronic (4) Atrial fibrillation Code(s): I48.91 - UNSPECIFIED ATRIAL FIBRILLATION Status: Chronic Qualifiers: Atrial fibrillation type: unspecified chronic Qualified Code(s): I48.20 - Chronic atrial fibrillation, unspecified; I48.2 - Chronic atrial fibrillation (5) Colon polyp Code(s): K63.5 - POLYP OF COLON Status: Acute - Plan * Acute blood loss anemia due to large colon polyp- Hemoglobin is 6.6 today- will transfuse * Lasix post transfusion * Discussed with patient the possibility of the need for surgery. Her gra nddaughter is at the bedside. She has decided to stay in our facility if surgery is needed. She would like to be placed in a new [place] facility, and close to [place] if possible when it is time for discharge * DM- blood glucose is stable- will advance her diet to full liquids * AFIB- her heart rate is stable ( Home medications are not in the chart) spoke with her nurse, she is going to look into it. * General deconditioning and bed ridden status, and heart murmur with history of heart failure- Will consult Cardiology to see her risk for surgery, the risk may be prohibitive. Will order Echo
--- NOTE | 2020-07-17 14:42 | PRG ---
DATE OF SERVICE: 07/17/2020 REASON FOR CONSULTATION: Hematochezia. SUBJECTIVE: The patient did not have any acute events or problems overnight. She has not had a bowel movement since the colonoscopy, but she has not had any further episodes of hematochezia nor has she had any melenic type stools either. She does endorse some mild abdominal discomfort in the lower abdomen, but otherwise has been able to tolerate a diet well with no complaints. Currently, she denies any nausea, vomiting, fevers, chills, hematemesis, melena, or hematochezia. OBJECTIVE: VITAL SIGNS: Temperature 97.8, pulse 83, blood pressure 111/56, respiratory rate 20, saturating 96% on 2 L nasal cannula. GENERAL: The patient is lying in bed, in no acute distress. Alert and oriented x3. CARDIOVASCULAR: Regular rate and rhythm. RESPIRATORY: Clear to auscultation bilaterally. ABDOMEN: Normoactive bowel sounds. Soft, nontender, nondistended. EXTREMITIES: 1+ bilateral lower extremity edema. LABORATORY DATA: CBC with a white blood cell count of 7.4, hemoglobin 6.6, hematocrit 20.4, platelets 183. IMAGING DATA: No current GI imaging is available for review. ASSESSMENT AND PLAN: The patient is an 85-year-old female with past medical history of congestive heart failure; atrial fibrillation, on anticoagulation; diabetes; pulmonary embolism; anemia of venous insufficiency; and umbilical hernia, while on anticoagulation with significant anemia with negative upper endoscopy and colonoscopy showing a large polypoid lesion in the ascending colon. Hemotochezia: The patient initially presented to [facility] with hematochezia, where she was resuscitated with 4 units of PRBC's per chart review. She was ultimately transferred to [facility] for further evaluation. During this hospitalization, she had an upper endoscopy with relatively normal findings in addition to a colonoscopy that showed a large polypoid lesion in the mid ascending colon with mild friability which could have contributed to her hematochezia, especially with concurrent use of anticoagulation. Over the last 24 hours, she continues to have a decrease in her H and H despite not restarting her anticoagulation, but has not had any overt evidence of GI bleeding. 1. Recommendations: a. Would continue to trend her H and H and transfuse as necessary to maintain an H and H of 7/. b. Continue to monitor clinically for signs of active GI bleeding. c. We will continue to hold anticoagulation for at least 24 more hours in light of the large polypectomy performed on the day of the colonoscopy. d. Agree with transfusion of 1 unit of PRBC's. e. If the patient continues to have decreasing H and H with no observed evidence of GI bleeding, I would consider a tagged red cell scan for further evaluation and localization. However, the most likely culprit at this time would be the ascending colon polypoid lesion, at which time, surgical intervention would be preferred. Given the higher likelihood that this polypoid lesion is she will ultimately need surgical evaluation and resection of this lesion; however, if she continues to have a decrease in her H and H, tagged red cell scan could be considered at that time. Per patient's preference, she would prefer to be in [place] for any surgical evaluation and/or resection, so transferring the patient to a more local hospital there may be prudent. We will truly sign off at this time. Please call with any questions. Job ID: [id number]
[2020-07-17] MEDS ORDERED: Furosemide 40 MG/4 ML VIAL SLOW IVP SCH (16:00)
--- NOTE | 2020-07-17 21:20 | CON ---
DATE OF CONSULTATION: 07/17/2020 CHIEF COMPLAINT: Ascending colon polyp. HISTORY OF PRESENT ILLNESS: This is an 85-year-old female with a history of chronic atrial fibrillation, on blood thinner, who presents with anemia and lower GI bleed. Ultimately, was found to have a larger polyp and unresectable in the right colon. Biopsies are still pending. This is the presumed location for her bleed. She has had to have a couple units of blood. Her blood thinners have been held as of now. The patient is mostly bedbound at the halfway. She has a history of remote PE, but coronary artery disease and atrial fibrillation. She does not ambulate. MEDICAL HISTORY: CAD, CHF, AFib, diabetes mellitus, history of PE, chronic anemia, sick sinus syndrome, venous insufficiency, umbilical/incisional hernia. PAST SURGICAL HISTORY: Includes tonsillectomy, . MEDICATIONS: See list. ALLERGIES: ALBUTEROL, CLONIDINE, MEPERIDINE, AND PENICILLIN. SOCIAL HISTORY: No smoking or alcohol. She is in a halfway. REVIEW OF SYSTEMS: Otherwise, negative unless described above. PHYSICAL EXAMINATION: VITAL SIGNS: Blood pressure is 111/56, pulse 83, respirations 20. HEENT: Sclerae anicteric. Oropharynx clear. NECK: No lymphadenopathy. CHEST: Clear. HEART: Irregular rate. ABDOMEN: Soft and protuberant. She has large lower abdominal hernia. EXTREMITIES: She has 2+ pitting edema in bilateral lower extremities. LABORATORY DATA: Hemoglobin 6.6, platelet count is 183. Sodium 135, creatinine 0.66. CT scan showed no obvious mass or metastatic disease. ASSESSMENT: An 85-year-old, poor surgical candidate with multiple comorbidities and now unresectable polyp in the right colon came in with bleeding from this. PLAN: Ms. Munson is certainly no candidate for surgery. I had a long discussion with family about options. Her 30 day mortality for a colon resection would be quite high and I think she should elect to not undergo surgery. An issue is her chronic anticoagulation, which is going to be contraindicated at this point given this polyp that is going to bleed. That puts her at high risk of long-term stroke or recurrent PE, but at this point she is just too high risk. I think her best option is back to the halfway off anticoagulation and to see if her hemoglobin stabilizes. That plan cannot be changed in the future, but she would almost certainly have poor outcome with surgery. We will discuss with family again tomorrow too. Job ID: [id number]
--- NOTE | 2020-07-17 22:05 | CON ---
DATE OF CONSULTATION: 07/17/2020 INDICATION FOR CONSULTATION: 85-year-old female who has been found to have colon cancer, who needs to undergo possible resection. She has multiple medical problems. We were asked to see her for assistance with preop clearance. HISTORY OF PRESENT ILLNESS: This 85-year-old female has a history of chronic atrial fibrillation. She has been on Eliquis. She started having bleeding apparently in her stools and hemoglobin was found to be 6.7. She was seen in the emergency room. She has had multiple transfusions. She still remains at a hemoglobin I believe is 6.6, but she had more blood today, but has not had another repeat hemoglobin. She has been on chronic oral anticoagulation in the form of Eliquis for her atrial fibrillation. She also tells she had a history of a pulmonary embolus earlier this year. She has also been evaluated earlier this year for a pacemaker insertion as well as a TAVR, but she declined to undergo the procedures and it was felt also that she was not a very good candidate to undergo the procedure. She has pretty much been bedridden and for the last year or so, she has had 3 CVAs; the first one occurred in 2006, the last one 1 or 2 years ago, she is uncertain as to when it was. She also has a history of mild decrease in left ventricular systolic function. She has morbid obesity and is a poor candidate for any type of surgical procedure. An echocardiogram today reveals severe aortic valve stenosis with aortic valve area of approximately 0.7 cm2 with both left and right atrial dilatation. I suspect she has significant diastolic dysfunction. It is difficult to determine with her atrial fibrillation, but she has large atrium; both the right and left atrium. Ejection fraction is estimated at 45% to 50%. PAST MEDICAL HISTORY: Significant for the congestive heart failure. She has atrial fibrillation, diabetes, history of pulmonary emboli, history of CVAs, history of aortic valve stenosis, history of GI bleed now as well as her diabetes, obesity, pulmonary emboli, and bradycardia. She has had a and tonsillectomy. She has arthritis. She also has umbilical hernia. SOCIAL HISTORY: She resides in a group home. There is no history of alcohol or tobacco abuse. She says she was exposed to cigarette smoking, but she denies any cigarette smoking herself. FAMILY HISTORY: Noncontributory. ALLERGIES: SHE IS ALLERGIC TO ALBUTEROL, DEMEROL, CLONIDINE, AND PENICILLIN. REVIEW OF SYSTEMS: Please refer to the notes already dictated, but her 12-point review of systems, she mainly complains of inability to walk due to arthritis in her hips and knees. She also complains of chronic lower extremity edema. She has had some problems with contractures of her hands and fingers, which she attributes to arthritis. She has had no seizures or syncope. She does have some weakness. PHYSICAL EXAMINATION: GENERAL: Reveals an elderly obese female, who is in no acute distress at this time. She is very pleasant. She is oriented. HEENT: Shows head to be normocephalic and atraumatic. She does have bilateral carotid bruits, which maybe radiation from the aortic area. CHEST: Shows basilar rales, some crackles. CARDIOVASCULAR: She has a harsh systolic murmur over the aortic area, which radiates over the entire precordium. She has an irregular rhythm. ABDOMEN: Shows morbid obesity. Positive bowel sounds are present. EXTREMITIES: Show no clubbing or cyanosis. Pedal pulses are decreased, but seem to be present. She does have 1 to 2+ lower extremity edema, mainly around the ankles. NEUROLOGIC: She appears to be intact. She did not get out of the bed for evaluation and apparently is relatively bed-bound. LABORATORY DATA: Shows hemoglobin now is 6.6 most recently, hematocrit was 20.4, WBC of 7.4, platelet count 183,000. Her sodium was 135 with potassium 4.0, BUN was 8 with a creatinine of 0.66, and blood sugar was 224. RADIOLOGY DATA: Echocardiogram as noted above shows severe aortic valve stenosis. IMPRESSION: 1. Colon cancer. We were asked to see her for a preoperative evaluation. Obviously, she is a very poor candidate for any type of intervention. She may certainly develop obstruction and may need to undergo a diverting colostomy if she so chooses, but she is a very poor candidate for any type of general anesthesia and surgery due to her severe aortic valve stenosis as well as her deconditioning and mild decrease in left ventricular systolic function. It is unclear whether or not she has any coronary artery disease. She has not undergone a stress test or cardiac catheterization that I can determine. Also, she is a poor candidate to undergo any type of surgery due to her decreased ability to do any kind of rehabilitation. She is relatively bedridden and also after discussion with the patient, I believe she will refuse to undergo any type of surgical procedure and says that nature will take its course. Also, she continued to have some GI blood loss. This may improve after she stops the Eliquis. However, when she stops the Eliquis, she is also at risk for having a repeat CVA and I have discussed this with the patient, but obviously they are not very good options in this patient. 2. History of severe aortic valve stenosis. As noted above, she is a very poor candidate to undergo any type of surgical procedure. She has refused or has returned down the opportunity for a TAVR in the past as well as a pacemaker, which will need to be performed prior to the TAVR and I believe she was also felt to be a poor candidate after she was fully evaluated. 3. History of atrial fibrillation. This is chronic in nature. If the bleeding is able to be stopped, maybe she can take a baby aspirin, but with her colon cancer and the bleeding, she certainly cannot be on oral anticoagulation in the form of Eliquis or Xarelto or any other medicines like that. 4. History of mild decrease in left ventricular systolic function of uncertain etiology. This may be due to the worsening of the aortic valve stenosis and we will need to just treat her symptomatically with hopefully diuretics. She is not a candidate for very high-dose beta blockers obviously due to her bradycardia. 5. Bradycardia and again she has refused to undergo pacemaker insertion. She is not on a beta fela at this time, but would just continue her present medications as needed. 6. History of CVAs in the past. This appears to be stable and again if she is able to tolerate the baby aspirin, this maybe the best option. 7. History of pulmonary emboli. This most likely is due to immobility. The patient is sitting in the bed most of the day, but at this time, overall impression from a cardiac standpoint, she is a very high risk to undergo any type of surgical or anesthesia procedures with her severe aortic valve stenosis and in view of the fact that she has refused and actually has been turned down for the procedures, then she will be medical management only. Job ID: [id number]
[2020-07-18 04:36] LABS: #Eosinphils 0.3 thou/uL (0.0-0.7); #Lymphocytes 0.4 thou/uL (1.20-3.40); #Monocytes 0.8 thou/uL (0.11-0.59); #Neutrophils 4.1 thou/uL (1.40-6.50); %Basophils 0.2 % (0.0-1.0); %Eosinophils 5.9 % (0.0-10.0); %Lymphocytes 6.3 % (21.0-51.0); %Neutrophils 73.7 % (42.0-75.0); Hemoglobin 7.7 g/dL (12.0-16.0); Mean Corpuscular HGB CONC 31.7 g/dL (32.0-36.0); Mean Corpuscular Hemoglobin 30.3 pg (27.0-31.0); Mean Corpuscular Volume 95.6 fL (78.0-98.0); Platelet Count 179 thou/uL (130-400); RBC Distribution Width 15.7 % (11.5-14.5); Red Blood Cell (RBC) Count 2.54 mill/uL (4.20-5.40); White Blood Cell (WBC) Count 5.6 thou/uL (4.8-10.8)
[2020-07-18 05:00] LABS: Anion Gap 11 mmol/L (10-20); BUN (Urea Nitrogen) 7 mg/dL (9.8-20.1); Calc. Creatinine Clearance 100 mL/min (70-130); Calcium 8.4 mg/dL (7.8-10.44); Carbon Dioxide 31 mmol/L (23-31); Chloride 97 mmol/L (98-107); Estimated GFR-MDRD Greater than 90; Glucose 139 mg/dL (83-110); Potassium 3.7 mmol/L (3.5-5.1); Sodium 135 mmol/L (136-145)
[2020-07-18] MEDS: Pantoprazole 40 MG VIAL IVP SCH ×2 (08:24→21:31)
--- NOTE | 2020-07-18 11:37 | PDOC.HOSPP ---
- Subjective Encounter Date: 07/18/20 Encounter Time: 11:35 Subjective: Ms. Munson was seen today in follow-up of GI bleed, and AFIB and aortic stenosis. She does not have any complaints. She says she becomes extremely short of breath when she moves even a slight amount. She has not noted any further bleeding. - Objective Vital Signs & Weight: Vital Signs (12 hours) Temp Pulse Resp BP Pulse Ox 07/18/20 08:39 97.8 F 81 18 121/59 L 98 07/18/20 08:24 99 07/18/20 03:28 97.1 F L 86 14 119/72 100 07/18/20 00:00 72 18 122/64 Weight Admit Weight 203 lb 12.8 oz Weight 210 lb I&O: 07/17/20 07/18/20 07/19/20 06:59 06:59 06:59 Intake Total 920 1310 Output Total 540 1650 Balance 380 -340 Result Diagrams: 07/18/20 04:24 07/18/20 04:24 Additional Labs: Accuchecks 07/18/20 07/18/20 07/17/20 11:02 06:03 20:22 POC Glucose 216 H 137 H 161 H 07/17/20 17:00 POC Glucose 139 H Hospitalist ROS - Medication Medications: Active Medications Generic Name Dose Route Start Last Admin Trade Name Freq PRN Reason Stop Dose Admin Acetaminophen 650 mg 07/13/20 05:41 07/17/20 11:32 Acetaminophen 325 Mg Tab PO 650 mg Q4H PRN Administration Headache/Fever/Mild Pain (1-3) Insulin Human Lispro 0 units 07/13/20 05:47 07/17/20 11:31 Humalog 300 Units/3 Ml Vial SC 3 unit .MILD SLIDING SCALE PRN Administration Mild Correctional Scale Pantoprazole Sodium 40 mg 07/13/20 09:00 07/18/20 08:24 Pantoprazole 40 Mg Vial IVP 40 mg Q12HR RANDI Administration - Exam Eye: PERRL, anicteric sclera Heart: RRR, no murmur, murmur present, II/IV Respiratory: rales Gastrointestinal: soft, non-tender, non-distended, normal bowel sounds, no palpable masses Extremities: 2+ LE edema Extremities - other findings: + pitting edema in both upper and lower extremities Hosp A/P (1) GI bleed Code(s): K92.2 - GASTROINTESTINAL HEMORRHAGE, UNSPECIFIED Status: Acute (2) Acute blood loss anemia Code(s): D62 - ACUTE POSTHEMORRHAGIC ANEMIA Status: Acute (3) Diabetes mellitus type 2 in obese Code(s): E11.69 - TYPE 2 DIABETES MELLITUS WITH OTHER SPECIFIED COMPLICATION; E66.9 - OBESITY, UNSPECIFIED Status: Chronic (4) Atrial fibrillation Code(s): I48.91 - UNSPECIFIED ATRIAL FIBRILLATION Status: Chronic Qualifiers: Atrial fibrillation type: unspecified chronic Qualified Code(s): I48.20 - Chronic atrial fibrillation, unspecified; I48.2 - Chronic atrial fibrillation (5) Colon polyp Code(s): K63.5 - POLYP OF COLON Status: Acute (6) Hypothyroidism Code(s): E03.9 - HYPOTHYROIDISM, UNSPECIFIED Status: Acute - Plan * Acute blood loss anemia due to large colon polyp- Hemoglobin is 7.7 today * Will continue to monitor her H&H and continue OFF Eliquis * She is NOT a surgical candidate due to the multiple medical co-morbidities mentioned earlier * DM- blood glucose is stable- advance her diet, and re-start her home medications * Chronic systolic heart failure- re-start Lisinopril as well as Lasix * HTN- re-start her home medications * Hypothyroidism- re-start her home medications * AFIB- her heart rate is stable * General deconditioning - continue PT/OT * Awaiting placement
[2020-07-18] MEDS: HumaLOG 300 UNITS/3 ML VIAL SC PRN (13:51)
[2020-07-18] MEDS ORDERED: Furosemide 40 MG/4 ML VIAL SLOW IVP SCH (17:30)
[2020-07-18] MEDS ORDERED: HumaLOG 300 UNITS/3 ML VIAL SC PRN (20:42)
[2020-07-18] MEDS ORDERED: Furosemide 40 MG TAB PO SCH (21:00)
[2020-07-18] MEDS: Isosorbide Dinitrate 5 MG TAB PO SCH (21:31)
[2020-07-18] MEDS: Ascorbic Acid 500 mg Chewable Tablet PO SCH (21:31)
[2020-07-18] MEDS: metFORMIN 500 MG TAB PO SCH (21:31)
[2020-07-18] MEDS: Acetaminophen 325 MG TAB PO PRN (23:41)
[2020-07-19] MEDS: Levothyroxine Sodium 100 MCG TAB PO SCH (07:25)
[2020-07-19] MEDS: Furosemide 40 MG/4 ML VIAL SLOW IVP SCH ×2 (07:26→15:20)
[2020-07-19] MEDS: Oxybutynin ER 5 MG TAB PO SCH (09:15)
[2020-07-19] MEDS: Cholecalciferol 1,000 UNITS (25 MCG) TAB PO SCH (09:15)
[2020-07-19] MEDS: Isosorbide Dinitrate 5 MG TAB PO SCH ×2 (09:15→21:01)
[2020-07-19] MEDS: Lisinopril 10 MG TAB PO SCH (09:15)
[2020-07-19] MEDS: Ascorbic Acid 500 mg Chewable Tablet PO SCH ×2 (09:16→21:01)
[2020-07-19] MEDS: Potassium Chloride 20 MEQ TAB PO SCH (09:16)
[2020-07-19] MEDS: Multivitamin W/ Minerals 1 TAB PO SCH (09:16)
[2020-07-19] MEDS: Ferrous Sulfate 325 MG TAB PO SCH (09:16)
[2020-07-19] MEDS: Pantoprazole 40 MG VIAL IVP SCH ×2 (09:16→21:00)
[2020-07-19] MEDS: metFORMIN 500 MG TAB PO SCH ×2 (09:16→21:01)
[2020-07-19] MEDS: Loratadine 10 MG TAB PO SCH (09:16)
[2020-07-19] MEDS: Polyethylene Glycol 3350 17 GM Packet PO SCH (09:19)
[2020-07-19 10:13] LABS: Hemoglobin 7.8 g/dL (12.0-16.0); Platelet Count 227 thou/uL (130-400)
[2020-07-19] MEDS: HumaLOG 300 UNITS/3 ML VIAL SC PRN (11:52)
--- NOTE | 2020-07-19 15:13 | PDOC.HOSPP ---
- Subjective Encounter Date: 07/19/20 Encounter Time: 15:11 Subjective: Ms. Munson was seen today in follow-up of GI Bleed. She does not have any new complaints. She is less short of breath. - Objective Vital Signs & Weight: Vital Signs (12 hours) Temp Pulse Pulse Pulse Resp BP BP 07/19/20 11:45 97.5 F L 65 18 07/19/20 08:37 80 86 125/60 123/58 L 07/19/20 07:58 07/19/20 07:30 97.9 F 67 18 07/19/20 04:00 97.8 F 58 L 18 BP BP Pulse Ox Pulse Ox Pulse Ox 07/19/20 11:45 131/66 99 07/19/20 08:37 99 100 07/19/20 07:58 98 07/19/20 07:30 133/65 98 07/19/20 04:00 128/68 98 Weight Admit Weight 203 lb 12.8 oz Weight 210 lb 9.6 oz I&O: 07/18/20 07/19/20 07/20/20 06:59 06:59 06:59 Intake Total 1310 1330 Output Total 1650 1050 Balance -340 280 Result Diagrams: 07/19/20 10:04 07/18/20 04:24 Additional Labs: Accuchecks 07/19/20 07/19/20 07/18/20 10:58 06:10 20:21 POC Glucose 189 H 110 H 221 H 07/18/20 16:45 POC Glucose 158 H Hospitalist ROS - Medication Medications: Active Medications Generic Name Dose Route Start Last Admin Trade Name Thom PRN Reason Stop Dose Admin Acetaminophen 650 mg 07/13/20 05:41 07/18/20 23:41 Acetaminophen 325 Mg Tab PO 650 mg Q4H PRN Administration Headache/Fever/Mild Pain (1-3) Ascorbic Acid 500 mg 07/18/20 21:00 07/19/20 09:16 Ascorbic Acid 500 Mg Chewable Tablet PO 500 mg BID RANDI Administration Cholecalciferol 2,000 units 07/19/20 09:00 07/19/20 09:15 Cholecalciferol 1,000 Units (25 Mcg) Tab PO 2,000 units DAILY RANDI Administration Ferrous Sulfate 325 mg 07/19/20 09:00 07/19/20 09:16 Ferrous Sulfate 325 Mg Tab PO 325 mg DAILY RANDI Administration Furosemide 40 mg 07/19/20 06:00 07/19/20 07:26 Furosemide 40 Mg/4 Ml Vial SLOW IVP 40 mg 0600,1400 RANDI Administration Insulin Human Lispro 0 units 07/13/20 05:47 07/19/20 11:52 Humalog 300 Units/3 Ml Vial SC 2 unit .MILD SLIDING SCALE PRN Administration Mild Correctional Scale Iron/Minerals/Multivitamins 1 tab 07/19/20 09:00 07/19/20 09:16 Multivitamin W/ Minerals 1 Tab PO 1 tab DAILY RANDI Administration Isosorbide Dinitrate 10 mg 07/18/20 21:00 07/19/20 09:15 Isosorbide Dinitrate 5 Mg Tab PO 10 mg BID RANDI Administration Levothyroxine Sodium 200 mcg 07/19/20 06:00 07/19/20 07:25 Levothyroxine Sodium 100 Mcg Tab PO 200 mcg 0600 RANDI Administration Lisinopril 10 mg 07/19/20 09:00 07/19/20 09:15 Lisinopril 10 Mg Tab PO 10 mg DAILY RNADI Administration Loratadine 10 mg 07/19/20 09:00 07/19/20 09:16 Loratadine 10 Mg Tab PO 10 mg DAILY RANDI Administration Metformin HCl 500 mg 07/18/20 21:00 07/19/20 09:16 Metformin 500 Mg Tab PO 500 mg BID RANDI Administration Oxybutynin Chloride 10 mg 07/19/20 09:00 07/19/20 09:15 Oxybutynin Er 5 Mg Tab PO 10 mg DAILY RANDI Administration Pantoprazole Sodium 40 mg 07/13/20 09:00 07/19/20 09:16 Pantoprazole 40 Mg Vial IVP 40 mg Q12HR RANDI Administration Polyethylene Glycol 17 gm 07/19/20 09:00 07/19/20 09:19 Polyethylene Glycol 3350 17 Gm Packet PO Not Given DAILY RANDI Potassium Chloride 20 meq 07/19/20 09:00 07/19/20 09:16 Potassium Chloride 20 Meq Tab PO 20 meq DAILY RANDI Administration - Exam Eye: PERRL, anicteric sclera Heart: RRR, no murmur, no gallops, no rubs, normal peripheral pulses Respiratory: CTAB, no wheezes, no rales, no ronchi, normal chest expansion, no tachypnea, normal percussion Gastrointestinal: soft, non-tender, non-distended, normal bowel sounds, no palpable masses, no hepatomegaly Extremities: no cyanosis, 2+ LE edema Hosp A/P (1) GI bleed Code(s): K92.2 - GASTROINTESTINAL HEMORRHAGE, UNSPECIFIED Status: Acute (2) Acute blood loss anemia Code(s): D62 - ACUTE POSTHEMORRHAGIC ANEMIA Status: Acute (3) Diabetes mellitus type 2 in obese Code(s): E11.69 - TYPE 2 DIABETES MELLITUS WITH OTHER SPECIFIED COMPLICATION; E66.9 - OBESITY, UNSPECIFIED Status: Chronic (4) Atrial fibrillation Code(s): I48.91 - UNSPECIFIED ATRIAL FIBRILLATION Status: Chronic Qualifiers: Atrial fibrillation type: unspecified chronic Qualified Code(s): I48.20 - Chronic atrial fibrillation, unspecified; I48.2 - Chronic atrial fibrillation (5) Colon polyp Code(s): K63.5 - POLYP OF COLON Status: Acute (6) Hypothyroidism Code(s): E03.9 - HYPOTHYROIDISM, UNSPECIFIED Status: Acute - Plan * Acute blood loss anemia due to large colon polyp- Hemoglobin is 7.8 today * H&H has been stable * She is NOT a surgical candidate due to the multiple medical co-morbidities mentioned earlier * DM- blood glucose is stable- stable * Chronic systolic heart failure-continue Lasix IV, may transition to oral tomorrow * HTN-stable * Hypothyroidism- continue Levothyroxine * AFIB- her heart rate is stable * General deconditioning - continue PT/OT * Awaiting placement
[2020-07-20] MEDS: HYDROcodone/Acetaminophen 5/325 mg Tablet PO PRN (03:36)
[2020-07-20] MEDS: Levothyroxine Sodium 100 MCG TAB PO SCH (06:27)
[2020-07-20] MEDS: Furosemide 40 MG/4 ML VIAL SLOW IVP SCH (06:27)
[2020-07-20] MEDS: Isosorbide Dinitrate 5 MG TAB PO SCH ×2 (08:59→20:30)
[2020-07-20] MEDS: Potassium Chloride 20 MEQ TAB PO SCH (08:59)
[2020-07-20] MEDS: Cholecalciferol 1,000 UNITS (25 MCG) TAB PO SCH (08:59)
[2020-07-20] MEDS: Ascorbic Acid 500 mg Chewable Tablet PO SCH ×2 (08:59→20:30)
[2020-07-20] MEDS: Pantoprazole 40 MG VIAL IVP SCH ×3 (08:59→20:39)
[2020-07-20] MEDS: Ferrous Sulfate 325 MG TAB PO SCH (08:59)
[2020-07-20] MEDS: metFORMIN 500 MG TAB PO SCH ×2 (09:00→20:31)
[2020-07-20] MEDS: Loratadine 10 MG TAB PO SCH (09:00)
[2020-07-20] MEDS: Lisinopril 10 MG TAB PO SCH (09:00)
[2020-07-20] MEDS: Oxybutynin ER 5 MG TAB PO SCH (09:00)
[2020-07-20] MEDS: Multivitamin W/ Minerals 1 TAB PO SCH (09:00)
[2020-07-20] MEDS: Polyethylene Glycol 3350 17 GM Packet PO SCH (10:01)
--- NOTE | 2020-07-20 11:23 | PDOC.HOSPP ---
- Subjective Encounter Date: 07/20/20 Encounter Time: 11:21 Subjective: Ms. Munson was seen today in follow-up of GI Bleed. She notes some diarrhea off and on. She has had this problem at home. She also notes some dyspnea, but it is mainly when she is sitting up. - Objective Vital Signs & Weight: Vital Signs (12 hours) Temp Pulse Resp BP Pulse Ox 07/20/20 07:06 99 07/20/20 07:04 98.9 F 77 18 124/70 99 07/20/20 03:38 98.2 F 80 18 131/60 97 Weight Admit Weight 203 lb 12.8 oz Weight 210 lb 9.6 oz I&O: 07/19/20 07/20/20 07/21/20 06:59 06:59 06:59 Intake Total 1330 1000 Output Total 1050 1800 Balance 280 -800 Result Diagrams: 07/19/20 10:04 07/18/20 04:24 Additional Labs: Accuchecks 07/20/20 07/20/20 07/19/20 10:56 05:18 20:48 POC Glucose 168 H 120 H 162 H Hospitalist ROS - Medication Medications: Active Medications Generic Name Dose Route Start Last Admin Trade Name Freq PRN Reason Stop Dose Admin Acetaminophen 650 mg 07/13/20 05:41 07/18/20 23:41 Acetaminophen 325 Mg Tab PO 650 mg Q4H PRN Administration Headache/Fever/Mild Pain (1-3) Hydrocodone Bitart/Acetaminophen 1 tab 07/13/20 05:42 07/20/20 03:36 Hydrocodone/Acetaminophen 5/325 Mg Tablet PO 1 tab Q4H PRN Administration Moderate Pain (4-6) Ascorbic Acid 500 mg 07/18/20 21:00 07/20/20 08:59 Ascorbic Acid 500 Mg Chewable Tablet PO 500 mg BID RANDI Administration Cholecalciferol 2,000 units 07/19/20 09:00 07/20/20 08:59 Cholecalciferol 1,000 Units (25 Mcg) Tab PO 2,000 units DAILY RANDI Administration Ferrous Sulfate 325 mg 07/19/20 09:00 07/20/20 08:59 Ferrous Sulfate 325 Mg Tab PO 325 mg DAILY RANDI Administration Furosemide 40 mg 07/19/20 06:00 07/20/20 06:27 Furosemide 40 Mg/4 Ml Vial SLOW IVP 40 mg 0600,1400 RANDI Administration Insulin Human Lispro 0 units 07/13/20 05:47 07/19/20 11:52 Humalog 300 Units/3 Ml Vial SC 2 unit .MILD SLIDING SCALE PRN Administration Mild Correctional Scale Iron/Minerals/Multivitamins 1 tab 07/19/20 09:00 07/20/20 09:00 Multivitamin W/ Minerals 1 Tab PO 1 tab DAILY RANDI Administration Isosorbide Dinitrate 10 mg 07/18/20 21:00 07/20/20 08:59 Isosorbide Dinitrate 5 Mg Tab PO 10 mg BID RANDI Administration Levothyroxine Sodium 200 mcg 07/19/20 06:00 07/20/20 06:27 Levothyroxine Sodium 100 Mcg Tab PO 200 mcg 0600 RANDI Administration Lisinopril 10 mg 07/19/20 09:00 07/20/20 09:00 Lisinopril 10 Mg Tab PO 10 mg DAILY RANDI Administration Loratadine 10 mg 07/19/20 09:00 07/20/20 09:00 Loratadine 10 Mg Tab PO 10 mg DAILY RANDI Administration Metformin HCl 500 mg 07/18/20 21:00 07/20/20 09:00 Metformin 500 Mg Tab PO 500 mg BID RANDI Administration Oxybutynin Chloride 10 mg 07/19/20 09:00 07/20/20 09:00 Oxybutynin Er 5 Mg Tab PO 10 mg DAILY RANDI Administration Pantoprazole Sodium 40 mg 07/13/20 09:00 07/20/20 08:59 Pantoprazole 40 Mg Vial IVP 40 mg Q12HR RANDI Administration Polyethylene Glycol 17 gm 07/19/20 09:00 07/20/20 10:01 Polyethylene Glycol 3350 17 Gm Packet PO Not Given DAILY RANDI Potassium Chloride 20 meq 07/19/20 09:00 07/20/20 08:59 Potassium Chloride 20 Meq Tab PO 20 meq DAILY RANDI Administration Sodium Chloride 10 ml 07/17/20 07:52 07/20/20 09:00 Flush - Normal Saline 10 Ml Syringe IVF 10 ml PRN PRN Administration Saline Flush - Exam Eye: PERRL, anicteric sclera Heart: RRR, murmur present, II/IV Respiratory: CTAB, no wheezes, no rales, no ronchi, normal chest expansion Gastrointestinal: soft Extremities: 1+ LE edema Hosp A/P (1) GI bleed Code(s): K92.2 - GASTROINTESTINAL HEMORRHAGE, UNSPECIFIED Status: Acute (2) Acute blood loss anemia Code(s): D62 - ACUTE POSTHEMORRHAGIC ANEMIA Status: Acute (3) Diabetes mellitus type 2 in obese Code(s): E11.69 - TYPE 2 DIABETES MELLITUS WITH OTHER SPECIFIED COMPLICATION; E66.9 - OBESITY, UNSPECIFIED Status: Chronic (4) Atrial fibrillation Code(s): I48.91 - UNSPECIFIED ATRIAL FIBRILLATION Status: Chronic Qualifiers: Atrial fibrillation type: unspecified chronic Qualified Code(s): I48.20 - Chronic atrial fibrillation, unspecified; I48.2 - Chronic atrial fibrillation (5) Colon polyp Code(s): K63.5 - POLYP OF COLON Status: Acute (6) Hypothyroidism Code(s): E03.9 - HYPOTHYROIDISM, UNSPECIFIED Status: Acute - Plan * Acute blood loss anemia due to large colon polyp * Pathology report has resulted. 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 Lasix * HTN-stable * Hypothyroidism- continue Levothyroxine * AFIB- her heart rate is stable * General deconditioning - continue PT/OT * Awaiting placement
[2020-07-20] MEDS: HumaLOG 300 UNITS/3 ML VIAL SC PRN (11:29)
[2020-07-20] MEDS: Furosemide 40 MG TAB PO SCH (13:30)
[2020-07-20] MEDS ORDERED: Furosemide 20 MG TAB PO SCH (14:00)
[2020-07-21] MEDS: HYDROcodone/Acetaminophen 5/325 mg Tablet PO PRN (01:36)
[2020-07-21] MEDS ORDERED: Calcium Carbonate 500 MG ChewTAB PO PRN (01:54)
[2020-07-21] MEDS: Levothyroxine Sodium 100 MCG TAB PO SCH (05:16)
[2020-07-21 08:46] VITALS: BMI 33.0
[2020-07-21] MEDS: Isosorbide Dinitrate 5 MG TAB PO SCH ×2 (09:34→22:20)
[2020-07-21] MEDS: Ascorbic Acid 500 mg Chewable Tablet PO SCH ×2 (09:35→22:21)
[2020-07-21] MEDS: Oxybutynin ER 5 MG TAB PO SCH (09:35)
[2020-07-21] MEDS: metFORMIN 500 MG TAB PO SCH ×2 (09:36→22:20)
[2020-07-21] MEDS: Cholecalciferol 1,000 UNITS (25 MCG) TAB PO SCH (09:36)
[2020-07-21] MEDS: Lisinopril 10 MG TAB PO SCH (09:37)
[2020-07-21] MEDS: Polyethylene Glycol 3350 17 GM Packet PO SCH (09:37)
[2020-07-21] MEDS: Multivitamin W/ Minerals 1 TAB PO SCH (09:37)
[2020-07-21] MEDS: Loratadine 10 MG TAB PO SCH (09:37)
[2020-07-21] MEDS: Ferrous Sulfate 325 MG TAB PO SCH (09:37)
[2020-07-21] MEDS: Furosemide 40 MG TAB PO SCH ×2 (09:37→13:59)
[2020-07-21] MEDS: Potassium Chloride 20 MEQ TAB PO SCH (09:37)
[2020-07-21] MEDS: Pantoprazole 40 MG VIAL IVP SCH ×2 (11:24→22:20)
[2020-07-21] MEDS: HumaLOG 300 UNITS/3 ML VIAL SC PRN ×2 (11:36→18:28)
[2020-07-21] MEDS: Acetaminophen 325 MG TAB PO PRN ×2 (18:36→22:26)
[2020-07-22] MEDS: HYDROcodone/Acetaminophen 5/325 mg Tablet PO PRN (02:09)
[2020-07-22] MEDS: Levothyroxine Sodium 100 MCG TAB PO SCH (03:48)
[2020-07-22] MEDS: Polyethylene Glycol 3350 17 GM Packet PO SCH (08:12)
[2020-07-22] MEDS: Cholecalciferol 1,000 UNITS (25 MCG) TAB PO SCH (08:12)
[2020-07-22] MEDS: Furosemide 40 MG TAB PO SCH ×2 (08:12→15:00)
[2020-07-22] MEDS: Potassium Chloride 20 MEQ TAB PO SCH (08:12)
[2020-07-22] MEDS: Oxybutynin ER 5 MG TAB PO SCH (08:13)
[2020-07-22] MEDS: Ascorbic Acid 500 mg Chewable Tablet PO SCH (08:13)
[2020-07-22] MEDS: Ferrous Sulfate 325 MG TAB PO SCH (08:13)
[2020-07-22] MEDS: Multivitamin W/ Minerals 1 TAB PO SCH (08:13)
[2020-07-22] MEDS: metFORMIN 500 MG TAB PO SCH (08:13)
[2020-07-22] MEDS: Lisinopril 10 MG TAB PO SCH ×2 (08:13→09:25)
[2020-07-22] MEDS: Loratadine 10 MG TAB PO SCH (08:13)
[2020-07-22] MEDS: Isosorbide Dinitrate 5 MG TAB PO SCH (08:13)
[2020-07-22 08:47] LABS: Anion Gap 12 mmol/L (10-20); BUN (Urea Nitrogen) 13 mg/dL (9.8-20.1); Calc. Creatinine Clearance 101 mL/min (70-130); Calcium 8.3 mg/dL (7.8-10.44); Carbon Dioxide 36 mmol/L (23-31); Chloride 90 mmol/L (98-107); Estimated GFR-MDRD Greater than 90; Glucose 92 mg/dL (83-110); Potassium 4.2 mmol/L (3.5-5.1); Sodium 134 mmol/L (136-145)
--- NOTE | 2020-07-22 11:59 | PDOC.HOSPP ---
- Subjective Encounter Date: 07/22/20 Encounter Time: 11:56 Subjective: Ms. Munson was seen today in follow-up of GI Bleed, and generalized weakness. She does not have any new complaints. - Objective Vital Signs & Weight: Vital Signs (12 hours) Temp Pulse Resp BP BP Pulse Ox 07/22/20 08:02 97.0 F L 61 18 116/57 L 100 07/22/20 03:40 97.8 F 74 18 101/45 L 100 Weight Admit Weight 203 lb 12.8 oz Weight 210 lb 9.6 oz I&O: 07/21/20 07/22/20 07/23/20 06:59 06:59 06:59 Intake Total 1520 1440 Output Total 3350 1700 Balance -1830 -260 Result Diagrams: 07/19/20 10:04 07/22/20 07:58 Additional Labs: Accuchecks 07/22/20 07/22/20 07/21/20 10:57 02:54 21:03 POC Glucose 131 H 148 H 167 H 07/21/20 17:36 POC Glucose 154 H Hospitalist ROS - Medication Medications: Active Medications Generic Name Dose Route Start Last Admin Trade Name Freq PRN Reason Stop Dose Admin Acetaminophen 650 mg 07/13/20 05:41 07/21/20 22:26 Acetaminophen 325 Mg Tab PO 650 mg Q4H PRN Administration Headache/Fever/Mild Pain (1-3) Hydrocodone Bitart/Acetaminophen 1 tab 07/13/20 05:42 07/22/20 02:09 Hydrocodone/Acetaminophen 5/325 Mg Tablet PO 1 tab Q4H PRN Administration Moderate Pain (4-6) Ascorbic Acid 500 mg 07/18/20 21:00 07/22/20 08:13 Ascorbic Acid 500 Mg Chewable Tablet PO 500 mg BID RANDI Administration Calcium Carbonate 1,000 mg 07/21/20 01:54 07/21/20 02:21 Calcium Carbonate 500 Mg Chewtab PO 1,000 mg DAILYPRN PRN Administration Heartburn or Indigestion Cholecalciferol 2,000 units 07/19/20 09:00 07/22/20 08:12 Cholecalciferol 1,000 Units (25 Mcg) Tab PO 2,000 units DAILY RANDI Administration Ferrous Sulfate 325 mg 07/19/20 09:00 07/22/20 08:13 Ferrous Sulfate 325 Mg Tab PO 325 mg DAILY RANDI Administration Furosemide 40 mg 07/20/20 14:00 07/22/20 08:12 Furosemide 40 Mg Tab PO 40 mg 0900,1400 RANDI Administration Insulin Human Lispro 0 units 07/13/20 05:47 07/21/20 18:28 Humalog 300 Units/3 Ml Vial SC 2 unit .MILD SLIDING SCALE PRN Administration Mild Correctional Scale Iron/Minerals/Multivitamins 1 tab 07/19/20 09:00 07/22/20 08:13 Multivitamin W/ Minerals 1 Tab PO 1 tab DAILY RANDI Administration Isosorbide Dinitrate 10 mg 07/18/20 21:00 07/22/20 08:13 Isosorbide Dinitrate 5 Mg Tab PO 10 mg BID RANDI Administration Levothyroxine Sodium 200 mcg 07/19/20 06:00 07/22/20 03:48 Levothyroxine Sodium 100 Mcg Tab PO 200 mcg 0600 RANDI Administration Lisinopril 10 mg 07/19/20 09:00 07/22/20 09:25 Lisinopril 10 Mg Tab PO Not Given DAILY RANDI Loratadine 10 mg 07/19/20 09:00 07/22/20 08:13 Loratadine 10 Mg Tab PO 10 mg DAILY RANDI Administration Metformin HCl 500 mg 07/18/20 21:00 07/22/20 08:13 Metformin 500 Mg Tab PO 500 mg BID RANDI Administration Oxybutynin Chloride 10 mg 07/19/20 09:00 07/22/20 08:13 Oxybutynin Er 5 Mg Tab PO 10 mg DAILY RANDI Administration Pantoprazole Sodium 40 mg 07/22/20 09:00 07/22/20 08:19 Pantoprazole 40 Mg Tab PO 40 mg Q12HR RANDI Administration Polyethylene Glycol 17 gm 07/19/20 09:00 07/22/20 08:12 Polyethylene Glycol 3350 17 Gm Packet PO 17 gm DAILY RANDI Administration Potassium Chloride 20 meq 07/19/20 09:00 07/22/20 08:12 Potassium Chloride 20 Meq Tab PO 20 meq DAILY RANDI Administration Sodium Chloride 10 ml 07/17/20 07:52 07/20/20 09:00 Flush - Normal Saline 10 Ml Syringe IVF 10 ml PRN PRN Administration Saline Flush - Exam Eye: PERRL, anicteric sclera Heart: RRR, no gallops, no rubs, normal peripheral pulses, murmur present, II/IV Respiratory: CTAB, no wheezes, no rales, no ronchi, normal chest expansion Gastrointestinal: soft, non-tender, non-distended, normal bowel sounds, no palpable masses Extremities: 2+ LE edema (+ edema in both upper and lower extremities) Hosp A/P (1) GI bleed Code(s): K92.2 - GASTROINTESTINAL HEMORRHAGE, UNSPECIFIED Status: Acute (2) Acute blood loss anemia Code(s): D62 - ACUTE POSTHEMORRHAGIC ANEMIA Status: Acute (3) Diabetes mellitus type 2 in obese Code(s): E11.69 - TYPE 2 DIABETES MELLITUS WITH OTHER SPECIFIED COMPLICATION; E66.9 - OBESITY, UNSPECIFIED Status: Chronic (4) Atrial fibrillation Code(s): I48.91 - UNSPECIFIED ATRIAL FIBRILLATION Status: Chronic Qualifiers: Atrial fibrillation type: unspecified chronic Qualified Code(s): I48.20 - Chronic atrial fibrillation, unspecified; I48.2 - Chronic atrial fibrillation (5) Colon polyp Code(s): K63.5 - POLYP OF COLON Status: Acute (6) Hypothyroidism Code(s): E03.9 - HYPOTHYROIDISM, UNSPECIFIED Status: Acute - Plan * Acute blood loss anemia due to large colon polyp * Pathology report has resulted. pathology is consistent with Tubulovillous adenoma * DM- blood glucose is stable- stable * Chronic systolic heart failure-continue Lasix * HTN-stable * Hypothyroidism- continue Levothyroxine * AFIB- her heart rate is stable * General deconditioning - continue PT/OT * I called and spoke with Dr. Carreno for peer to peer. * Discharge planning is in progress
[2020-07-22 15:44] VITALS: BP 132/93; TEMP 98.1
[2020-07-22] MEDS: HumaLOG 300 UNITS/3 ML VIAL SC PRN (16:47)
--- NOTE | 2020-07-23 02:01 | DIS ---
DATE OF ADMISSION: 07/13/2020 DATE OF DISCHARGE: 07/22/2020 DISCHARGE DISPOSITION: To the [facility]. DISCHARGE DIAGNOSES: 1. Gastrointestinal bleed. 2. Acute blood loss anemia. 3. 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 4. Chronic systolic heart failure. 5. Critical aortic stenosis. 6. Diabetes mellitus, type 2. 7. Severe generalized deconditioning. 8. Morbid obesity with a body mass index of 33. The patient is 5 feet 7 inches, 210 pounds. 9. Atrial fibrillation, no longer on anticoagulation due to gastrointestinal bleed. DISCHARGE MEDICATIONS: Include: 1. Protonix 40 mg p.o. b.i.d. 2. Lasix 40 mg p.o. twice daily. 3. Vitamin D3 400 units 5 tablets daily. 4. Vitamin C 500 mg p.o. b.i.d. 5. Tradjenta 5 mg p.o. daily. 6. Levothyroxine 200 mcg p.o. daily. 7. Potassium chloride 20 mEq extended release p.o. daily. 8. Oxybutynin 10 mg extended release daily. 9. MiraLAX 17 g p.o. daily. 10. Lisinopril 10 mg p.o. daily. 11. Isosorbide dinitrate 10 mg p.o. b.i.d. 12. Metformin 500 mg p.o. b.i.d. 13. Iron sulfate 325 mg p.o. daily. 14. Diclofenac topical daily as needed. 15. Claritin 10 mg p.o. daily. 16. Multivitamins with folic acid and iron 1 tablet daily. 17. BuSpar 7.5 mg p.o. b.i.d. 18. Acetaminophen 650 mg p.o. q.6 as needed. IMAGING DONE DURING THE HOSPITAL STAY: The patient had an upper endoscopy, which was normal. The patient had a CT scan of the chest, abdomen and pelvis, the main findings of which were some ground-glass opacities in the right upper lobe and also in the lower lung zone, there are small bilateral pleural effusions, no evidence of any type of metastatic disease, there was some thickening of the colon wall noted. The patient also had a colonoscopy. On the colonoscopy, there was the demonstration of 3 polyps, 2 small, 1 approximately 5 mm polyp that was removed by snare cautery, and then another small polyp, which was also removed by snare. The patient had small internal to moderate-sized external hemorrhoids, which were nonbleeding, and also noted a 3 to 4 cm sessile mass, which was tattooed and biopsied. The pathology of which returned as tubulovillous adenoma. The patient had an echocardiogram, in which the ejection fraction was estimated at 45% to 50%. There was evidence of severe aortic stenosis with a valve area of 0.7 sq cm. CODE STATUS: Full code. ALLERGIES: TO ALBUTEROL, CLONIDINE, MEPERIDINE, AND PENICILLINS. HOSPITAL COURSE: Ms. Munson is a pleasant 85-year-old female, who was admitted to the hospital after having a large GI bleed. She was transferred from the hospital in [place], [place]. She was found to have acute blood loss anemia with a hemoglobin of 6.7. She was admitted to our facility and seen by Gastroenterology. She underwent upper endoscopy, which was negative. This was followed by having a CT scan of the chest, abdomen, and pelvis. This demonstrated some thickening in the colon wall. The patient subsequently had a colonoscopy, which demonstrated a large mass in the ascending colon, which was thought to be the source of the bleeding. This was biopsied and found to be a tubulovillous adenoma. The patient also had 2 smaller polyps, which were removed. There was discussion as to whether or not this tubulovillous adenoma should be resected. Unfortunately, the patient is essentially bed bound and has been so for some time and also has a history of congestive heart failure, which was slightly decompensated. She was also found to have critical aortic stenosis, and due to her advanced age and these other comorbid conditions, she was felt to be a very poor candidate for surgery. It was felt that she would have a very difficult postoperative course and her best option would be to proceed without surgery and to be taken off anticoagulation to hopefully prevent significant further bleeding. She was aware that being off anticoagulation would put her at higher risk of cerebrovascular disease. These options were discussed with the patient, both by myself, the contract technician as well as the general surgeon. The patient made a decision to pursue nonsurgical and conservative treatment. The remainder of her hospital stay was in the pursuit of placement. The patient had originally stated that she did not want to return to the nursing facility that she had left. We made efforts to find her a nursing facility closer to where her family would be residing, which was outside of the [facility] area. However, the insurance company denied coverage for the jail facility at these locations. I did participate in a [id number] conversation with Dr. Marlow, the emergency medicine medical director of the insurance company. However, they have held their decision to deny the jail service. For this reason, she was transferred back to the facility that she originally came from and would also consider offering intermittent services with home health. Job ID: [id number]
== END 2020-07-22 18:15 | DRG 394 ==
LOC: 2NO 05:10
PROVIDERS: ADMIT Internal Medicine; ATTEND Internal Medicine
PROC: 0DJ08ZZ Inspection of Upper Intestinal Tract, Via Natural or Artificial Opening Endoscopic (ICD-10-PCS; principal; 2020-07-13)
PROC: 30233N1 Transfusion of Nonautologous Red Blood Cells into Peripheral Vein, Percutaneous Approach (ICD-10-PCS; 2020-07-13)
PROC: 0DBK8ZX Excision of Ascending Colon, Via Natural or Artificial Opening Endoscopic, Diagnostic (ICD-10-PCS; 2020-07-15)
PROC: 0DBN8ZZ Excision of Sigmoid Colon, Via Natural or Artificial Opening Endoscopic (ICD-10-PCS; 2020-07-15)
PROC: 0W3P8ZZ Control Bleeding in Gastrointestinal Tract, Via Natural or Artificial Opening Endoscopic (ICD-10-PCS; 2020-07-15)
DX: D12.2 Benign neoplasm of ascending colon (principal); D62 Acute posthemorrhagic anemia; I48.20 Chronic atrial fibrillation, unspecified; I50.22 Chronic systolic (congestive) heart failure; I27.82 Chronic pulmonary embolism; K42.9 Umbilical hernia without obstruction or gangrene; E11.69 Type 2 diabetes mellitus with other specified complication; M19.90 Unspecified osteoarthritis, unspecified site; E66.9 Obesity, unspecified; R53.81 Other malaise; Z79.01 Long term (current) use of anticoagulants; Z90.49 Acquired absence of other specified parts of digestive tract; Z88.0 Allergy status to penicillin; Z88.8 Allergy status to other drugs, medicaments and biological substances; Z74.01 Bed confinement status; E03.9 Hypothyroidism, unspecified; E66.01 Morbid (severe) obesity due to excess calories; Z68.33 Body mass index [BMI] 33.0-33.9, adult; I35.0 Nonrheumatic aortic (valve) stenosis
CPT/HCPCS: 36415; 36416; 36430; 71260; 74177; 80048; 80076; 83735; 83880; 84484; 85014; 85018; 85025; 85049; 85384; 85610; 85730; 86850; 86900; 86901; 87324; 87449; 87493; 88305; 93306; C9113; J1940; J2704; J3475; J3480; P9016